=== PATIENT | female | born 1950 | race Hispanic/Latino ===

== ENCOUNTER 2017-10-30 09:23 | Inpatient (IN) | payer MEDICARE ==
--- NOTE | 2017-10-30 10:11 | ED PDOC ---
Arrival/HPI - General Chief Complaint: Trauma Time Seen by Provider: 10/30/17 09:47 Historian: Patient - History of Present Illness Narrative History of Present Illness (Text): 10/30/17 10:05 67 y/o female, pmh including htn/hyperlipidemia, psychiatric history including mild anxiety, sulfa allergy, FS108, GCS 15, alert and oriented to person and time but not to place, biba s[place], limited HPI can be obtained as the patient doesn't remember what happen. Pt. stated that she only recall that she was [place] the cruise [place] this [place] with her boyfriend (not at the bedside or in the ER), woke up at 7am and doesn't remember what happened afterward. As per EMS, pt. fall about 8 steps this morning with head injury which she found to be appear to be "altered" during the transport to the ER. Pt. has no urinary or bowel incontinence or retention , no tremors or seizure like activity. Pt. is in the ER only alert to her name/ date of and today's date but not sure where she is at and how she got here. Pt.'s only medical and psychological complaints are "I have a headache and I want to see my boyfriend." Pt. has no homicidal or suicidal ideation, no auditory or visual hallucination, no abdominal or pelvic pain, no back or rib pain, no hematuria, no dizziness, no change in vision, no palpitation, no rash, no numbness or tingling, no slurred speech. 10/30/17 11:20 Additional HPI obtained from the boyfriend shaylee, just arrived at the ER. Pt. possibly tripped over the carpted floor, tripped over 3 steps, twisted the body 3 steps and hit the head on the last 2-3 steps, found to be confused after the fall. Past Medical History - Provider Review Nursing Documentation Reviewed: Yes - Infectious Disease Hx of Infectious Diseases: None - Reproductive Menopause: Yes - Cardiac Hx Hypertension: Yes - Pulmonary Hx Respiratory Disorders: No - Genitourinary/Gynecological Other/Comment: breast ca - Psychiatric Hx Psychophysiologic Disorder: No Hx Substance Use: No - Anesthesia Hx Anesthesia: Yes Hx Anesthesia Reactions: No Family/Social History - Physician Review Nursing Documentation Reviewed: Yes Family/Social History: Unknown Family HX Smoking Status: Unknown If Ever Smoked Hx Alcohol Use: Yes Frequency of alcohol use: Socially Hx Substance Use: No Allergies/Home Meds Allergies/Adverse Reactions: Allergies Sulfa (Sulfonamide Antibiotics) Allergy (Verified 10/30/17 09:43) RASH Home Medications: Home Meds Medication Instructions Recorded Confirmed Lisinopril [Zestril] 40 mg PO DAILY 10/30/17 10/30/17 Metoprolol Tartrate [Lopressor] 50 mg PO BID 10/30/17 10/30/17 Rosuvastatin Calcium [Crestor] 10 mg PO DAILY 10/30/17 10/30/17 busPIRone [Buspar] 5 mg PO DAILY 10/30/17 10/30/17 Review of Systems - Review of Systems Constitutional: absent: Fatigue, Fevers Eyes: absent: Vision Changes ENT: absent: Hearing Changes, Rhinorrhea Respiratory: absent: SOB, Cough Cardiovascular: Other (syncope?). absent: Chest Pain, Palpitations Gastrointestinal: absent: Abdominal Pain, Nausea Musculoskeletal: absent: Arthralgias, Back Pain, Neck Pain, Myalgias Skin: absent: Rash, Pruritis Neurological: Headache. absent: Dizziness, Focal Weakness, Gait Changes, Speech Changes, Facial Droop, Disequilibrium, Seizure Psychiatric: absent: Anxiety, Depression, Suicidal Ideation Physical Exam Vital Signs Reviewed: Yes Vital Signs Temp Pulse Resp BP Pulse Ox 10/30/17 13:10 86 41 H 10/30/17 13:05 84 20 10/30/17 11:53 82 18 173/94 H 97 10/30/17 10:24 186/97 H 10/30/17 09:45 97.9 F 83 16 173/122 H 97 Temperature: Afebrile Blood Pressure: Hypertensive Pulse: Regular Respiratory Rate: Normal Appearance: Positive for: Well-Appearing, Non-Toxic, Comfortable Pain Distress: Mild Mental Status: Positive for: Confused Finger Stick Blood Glucose: 108 - Systems Exam Head: Present: Atraumatic, Normocephalic, Other (no facial tenderness or swelling). No: Tenderness, Contusion, Swelling, Ecchymosis, Abrasion, Laceration Pupils: Present: PERRL Extroacular Muscles: Present: EOMI Conjunctiva: Present: Normal Ears: Present: NORMAL TM, Normal Canal Mouth: Present: Moist Mucous Membranes Pharnyx: No: ERYTHEMA, EXUDATE, TONSILS ENLARGED Nose (External): Present: Atraumatic. No: Abrasion, Contusion, Laceration Nose (Internal): Present: Normal Inspection, No Active Bleeding. No: Rhinorrhea , Septal Hematoma, Epistaxis Neck: Present: Normal Range of Motion, Trachea Midline. No: Meningeal Signs, MIDLINE TENDERNESS, Paraspinal Tenderness, Lymphadenopathy Respiratory/Chest: Present: Clear to Auscultation, Good Air Exchange. No: Respiratory Distress, Accessory Muscle Use, Wheezes, Decreased Breath Sounds, Rales, Retracting, Rhonchi, Tachypneic Cardiovascular: Present: Regular Rate and Rhythm, Normal S1, S2. No: Murmurs Abdomen: No: Tenderness, Distention, Peritoneal Signs, Rebound, Guarding Rectal: Present: Other (Pt. declined) Back: Present: Normal Inspection. No: CVA Tenderness, Midline Tenderness, Paraspinal Tenderness, Pain with Leg Raise, Decubitus Ulcer Upper Extremity: Present: Normal Inspection, Normal ROM, NORMAL PULSES, Neurovascularly Intact, Capillary Refill < 2s. No: Cyanosis, Edema, Tenderness , Swelling, Deformity Lower Extremity: Present: Normal Inspection, NORMAL PULSES, Normal ROM, Neurovascularly Intact, Capillary Refill < 2 s. No: Edema, Tenderness, Swelling , Deformity Neurological: Present: GCS=15, CN II-XII Intact, Speech Normal, Motor Func Grossly Intact, Gait Normal, Other (Normal finger to nose test, normal heel to reynolds test, no drift, walking with normal gait and posture, full sensation intact to sharp and dull, no focal neurological deficits, GCS 15, NIHSS is 0) Skin: Present: Warm, Dry, Normal Color. 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 Santos -Observe and reassess 10/30/17 10:56 -NIHSS is 0 -EKG: NSR @ 81 BPM, no ST elevation or depression, no T wave inversion, no pervious ekg available for comparison -Chest ray no active disease -Hip/pelvis xray no fracture or dislocation -CT head Small amount of posttraumatic subarachnoid hemorrhage on the anterior surface of the left frontal lobe. -CT cervical No significant central canal or neural foraminal stenosis. Small central disc protrusion at C2-3. Pt. has no neck pain and no midline tenderness , no neck or upper extremity pain. -Labs show no acute findings except K+ 5.3 (kayaxylate po), Mg 1.5 (MgSu 1gm IV ordered) -BNP 707 (Fluid decreased to 50cc/hr), -Troponin is negative -UA show +UTI, IV rocephine ordered. -UDS is negative. -Alcohol level -Pt. is still neurologically intact, no focal neuroloficits, no changes compared to last examination. -Neurosurgery Dr. Ravi paged for emergent consult. Pt. will need ICU admission. -Case discussed with Dr. Santos, reviewed labs/radiology result and agreed on the plan of care 10/30/17 11:08 -Dr. Ravi call me back, discussed about the result/vital signs/physical examination, suggest to repeat CT head in 6 hours and if no change then the patient is clear from neurosurgical point of view, no other emergent intervention indicated from his point of view. -Dr. Li is traveling and not taking call -Pt. is currently aox3, I reviewed all labs/radiology result and consults recommendation with the patient and the boyfriend Shaylee (pt. agreed that he can know all her results and consult) -Paging hospitalist/ICU (incase the bleeding worsened 6 hours from now) and will need continuous serial neurological examination. Note: the fall appear to be mechanical but I can not exclude this is not cardiogenic syncope as the patient can not provide full history to me. 10/30/17 11:26 -I spoke to the ICU Dr. Zuniga, discussed about the case/radiology result/labs /neurosurgery evaluation, will come to evaluate the patient. 10/30/17 11:51 -Dr. Zuniga evaluated the patient and will take the patient to ICU for 24 hours until the repeat CT is resulted. -I spoke to the hospitalist Dr. Mike Messina, all labs/radiology/ICU Dr. Olivera /Neurosrgery Dr. Ravi discussed, agreed to admit the patient to his service which he will continue the care and repeat CT head in 6 hours from initially. -Case discussed/labs reviewed with Dr. Santos, he agreed on the treatment and admission plan. Reassessment Condition: Re-examined, Improving,but remains with symptoms - Critical Care Critical Care Minutes: 45 minutes Narrative Critical Care (Text): 10/30/17 11:55 Subarachnoid bleeding of the brain, trauma, neurosurgery consult, ICU consult, Medicine consult, neurological examination with series, cardiac monitoring. - Lab Interpretations Lab Results: 10/30/17 10:00 10/30/17 10:00 Lab Results 10/30/17 11:20: Blood Type O POSITIVE, Antibody Screen Negative, BBK History Checked No verified bt 10/30/17 10:19: Urine Color Yellow, Urine Appearance Clear, Urine pH 6.0, Ur Specific Bonner <= 1.005, Urine Protein Negative, Urine Glucose (UA) Negative, Urine Ketones Negative, Urine Blood Negative, Urine Nitrate Negative, Urine Bilirubin Negative, Urine Urobilinogen 0.2, Ur Leukocyte Esterase Trace H, Urine RBC 0 - 2, Urine WBC 5 - 10, Ur Epithelial Cells 3 - 4, Urine Bacteria Few 10/30/17 10:19: Urine Opiates Screen Negative, Urine Methadone Screen Negative, Ur Barbiturates Screen Negative, Ur Phencyclidine Scrn Negative, Ur Amphetamines Screen Negative, U Benzodiazepines Scrn Negative, U Oth Cocaine Metabols Negative, U Cannabinoids Screen Negative 10/30/17 10:00: WBC 9.7, RBC 4.83, Hgb 14.4, Hct 42.4, MCV 87.8, MCH 29.8, MCHC 34.0, RDW 13.5, Plt Count 246, MPV 11.1 H, Gran % 75.1 H, Lymph % (Auto) 18.6 L , [place] % (Auto) 5.5, Eos % (Auto) 0.6 L, Baso % (Auto) 0.2, Gran # 7.27 H, Lymph # (Auto) 1.8, [place] # (Auto) 0.5, Eos # (Auto) 0.1, Baso # (Auto) 0.02 10/30/17 10:00: Sodium 149 H, Potassium 5.3 H, Chloride 110 H, Carbon Dioxide 29 , Anion Gap 16, BUN 21, Creatinine 0.8, Est GFR ( Amer) > 60, Est GFR ( Non-Af Amer) > 60, Random Glucose 121 H, Calcium 9.8, Magnesium 1.5 L, Total Bilirubin 1.0, AST 33, ALT 39, Alkaline Phosphatase 94, Lactate Dehydrogenase 590, Total Creatine Kinase 108, Troponin I < 0.01, NT-Pro-B Natriuret Pep 707 H , Total Protein 7.3, Albumin 4.3, Globulin 3.0, Albumin/Globulin Ratio 1.4 10/30/17 09:39: POC Glucose (mg/dL) 108 I have reviewed the lab results: Yes - RAD Interpretation Radiology Orders: 10/30/17 10:01 CERVICAL SPINE W/O CONTRAST [CT] Stat HEAD W/O CONTRAST [CT] Stat 10/30/17 10:02 Hip Bilateral [HIP MIN 5V W/ PELVIS HARSHAD] [RAD] Stat 10/30/17 10:03 CHEST PORTABLE [RAD] Stat -Chest ray LUNGS: No active pulmonary disease. PLEURA: No significant pleural effusion identified, no pneumothorax apparent. CARDIOVASCULAR: Normal. OSSEOUS STRUCTURES: No significant abnormalities. VISUALIZED UPPER ABDOMEN: Normal. OTHER FINDINGS: None. IMPRESSION: No active disease. -Hip/pelvis xray HISTORY: trauma? COMPARISON: None. FINDINGS: BONES: Pelvis: Unremarkable. Right hip:Unremarkable. Left hip:Unremarkable. JOINTS: Right hip: Unremarkable. Left hip: Unremarkable. Sacroiliac Joints: Unremarkable. Pubic symphysis: Unremarkable. SOFT TISSUES: Normal. OTHER FINDINGS: None. IMPRESSION: Unremarkable radiographs of the hips and pelvis. -CT head HEMORRHAGE: There is a small amount of subarachnoid blood on the surface of the anterior left frontal lobe. The finding is seen on images 34-40 of series 4. I discussed the findings with the physician's mortgage loan assistant Abril at 10:45 a.m. BRAIN: No mass effect or edema. No atrophy or chronic microvascular ischemic changes. VENTRICLES: Unremarkable. No hydrocephalus. CALVARIUM: Unremarkable. PARANASAL SINUSES: Unremarkable as visualized. No significant inflammatory changes. MASTOID AIR CELLS: Unremarkable as visualized. No inflammatory changes. OTHER FINDINGS: None. IMPRESSION: Small amount of posttraumatic subarachnoid hemorrhage on the anterior surface of the left frontal lobe. -CT cervical HISTORY: head injury, altered? COMPARISON: None available. TECHNIQUE: Axial computed tomography images were obtained of the cervical spine without the use of intravenous contrast. Coronal and sagittal reformatted images were created and reviewed. Radiation dose: Total exam DLP = 635 mGy-cm. This CT exam was performed using one or more of the following dose reduction techniques: Automated exposure control, adjustment of the mA and/or kV according to patient size, and/or use of iterative reconstruction technique. FINDINGS: VERTEBRAE: No fracture. Normal alignment. No destructive bony lesion. DISCS/SPINAL CANAL/NEURAL FORAMINA: No significant central canal or neural foraminal stenosis. Small central disc protrusion at C2-3 PARASPINAL SOFT TISSUES: Unremarkable. OTHER FINDINGS: None. IMPRESSION: No acute findings Barrel Filler: Radiologist - EKG Interpretation EKG Interpretation (Text): 10/30/17 10:18 -EKG: NSR @ 81 BPM, no ST elevation or depression, no T wave inversion, no pervious ekg available for comparison Interpreted by ED Physician: Yes Type: 12 lead EKG Comparison: No previous EKG avail. - Medication Orders Current Medication Orders: Acetaminophen (Tylenol 325mg Tab) 650 mg PO Q6H PRN PRN Reason: Pain, Mild (1-3) Sodium Chloride (Sodium Chloride 0.9%) 1,000 mls @ 50 mls/hr IV .Q20H AMAN Last Admin: 10/30/17 11:27 Dose: 50 mls/hr eMAR Start Stop Document 10/30/17 11:27 GMD (Rec: 10/30/17 11:27 GMD [id number]) Intravenous Solution Start Date 10/30/17 Start Time 11:27 Ceftriaxone Sodium (Rocephin 1 Gram Ivpb) 1 gm in 100 mls @ 100 mls/hr IVPB DAILY AMAN PRN Reason: Protocol Labetalol HCl (Trandate) 5 mg IV Q4H PRN PRN Reason: Systolic Blood Pressure Metoclopramide HCl (Reglan) 10 mg IVP Q6H PRN PRN Reason: Nausea/Vomiting Last Admin: 10/30/17 17:44 Dose: 10 mg IVP Administration Document 10/30/17 17:44 KA (Rec: 10/30/17 17:[email or web address] Charges for Administration # of IVP Administrations 1 Morphine Sulfate (Morphine) 2 mg IVP Q4H PRN PRN Reason: Pain, moderate (4-7) Last Admin: 10/30/17 14:48 Dose: 2 mg [facility] Pain Assessment Document 10/30/17 14:48 KA (Rec: 10/30/17 14:[email or web address] Pain Reassessment Is this a pain reassessment? No Sleep Is patient sleeping during reassessment? No Presence of Pain Presence of Pain Yes Pain Scale Used Pain Scale Used Numeric Location Left, Right or Bilateral Bilateral Pain Location Body Jig Maker Description Description Constant Intensity of Pain at present 6 Pain Behavior Moaning Alleviating Factors/Management Medication Techniques Alleviating Factors Medication IVP Administration Document 10/30/17 14:48 KA (Rec: 10/30/17 14:[email or web address] Charges for Administration # of IVP Administrations 1 Re-Assess: LEA Pain Assessment Document 10/30/17 15:48 KAC (Rec: 10/30/17 16:25 [id number]) Pain Reassessment Is this a pain reassessment? Yes Sleep Is patient sleeping during reassessment? No Presence of Pain Presence of Pain Yes Pain Scale Used Pain Scale Used Numeric Location Left, Right or Bilateral Bilateral Pain Location Body Jig Maker Description Description Intermittent Intensity of Pain at present 3 Ondansetron HCl (Zofran Inj) 4 mg IVP Q6H PRN PRN Reason: Nausea/Vomiting Last Admin: 10/30/17 16:11 Dose: 4 mg IVP Administration Document 10/30/17 16:11 [facility] (Rec: 10/30/17 16:11 [id number]) Charges for Administration # of IVP Administrations 1 Pantoprazole Sodium (Protonix Inj) 40 mg IVP DAILY AMAN Discontinued Medications Sodium Chloride (Sodium Chloride 0.9%) 1,000 mls @ 100 mls/hr IV .Q10H AMAN Last Admin: 10/30/17 10:09 Dose: 100 mls/hr eMAR Start Stop Document 10/30/17 10:09 GMD (Rec: 10/30/17 10:09 GMD [id number]) Intravenous Solution Start Date 10/30/17 Start Time 10:09 Magnesium Sulfate/Dextrose (Magnesium Sulfate 1 Gm/100 Ml D5w) 1 gm in 100 mls @ 100 mls/hr IVPB ONCE ONE Stop: 10/30/17 11:50 Last Admin: 10/30/17 11:58 Dose: 100 mls/hr eMAR Start Stop Document 10/30/17 11:58 GMD (Rec: 10/30/17 11:58 GMD [id number]) Intravenous Solution Start Date 10/30/17 Start Time 11:58 End Date 10/30/17 End time 12:58 Total Infusion Time 60 Ceftriaxone Sodium (Rocephin 1 Gram Ivpb) 1 gm in 100 mls @ 200 mls/hr IVPB STAT STA PRN Reason: Protocol Stop: 10/30/17 11:21 Last Admin: 10/30/17 11:27 Dose: 200 mls/hr eMAR Start Stop Document 10/30/17 11:27 GMD (Rec: 10/30/17 11:27 GMD [id number]) Intravenous Solution Start Date 10/30/17 Start Time 11:27 End Date 10/30/17 End time 11:57 Total Infusion Time 30 Morphine Sulfate (Morphine) 4 mg IVP STAT STA Stop: 10/30/17 11:09 Last Admin: 10/30/17 11:50 Dose: 4 mg MAR Pain Assessment Document 10/30/17 11:50 GMD (Rec: 10/30/17 11:51 GMD [id number]) Pain Reassessment Is this a pain reassessment? No Presence of Pain Presence of Pain Yes Location Pain Location Body Jig Maker Description Description Constant Intensity of Pain at present 6 IVP Administration Document 10/30/17 11:50 GMD (Rec: 10/30/17 11:51 GMD [id number]) Charges for Administration # of IVP Administrations 1 Sodium Polystyrene Sulfonate (Kayexalate Susp) 30 gm MN STAT STA Stop: 10/30/17 11:04 Last Admin: 10/30/17 11:58 Dose: 30 gm - PA / RN CAMP / Resident Statement MD/DO has reviewed & agrees with the documentation as recorded. Disposition/Present on Arrival - Present on Arrival Any Indicators Present on Arrival: No History of DVT/PE: No History of Uncontrolled Diabetes: No Urinary Catheter: No History of Decub. Ulcer: No History Surgical Site Infection Following: None - Disposition Have Diagnosis and Disposition been Completed?: Yes Diagnosis: UTI (urinary tract infection), Hypomagnesemia, Elevated brain natriuretic peptide (BNP) level, Hyperkalemia, Subarachnoid hemorrhage, Fall Disposition: HOSPITALIZED Disposition Time: 10:55 Patient Plan: Admission, ICU Patient Problems: Current Active Problems Problem Status Onset UTI (urinary tract infection) Acute Hypomagnesemia Acute Elevated brain natriuretic peptide (BNP) level Acute Hyperkalemia Acute Subarachnoid hemorrhage Acute Fall Acute Condition: STABLE
[2017-10-30] MEDS ORDERED: Sodium Chloride 0.9% 1,000 ML IV SCH (10:15)
[2017-10-30 10:19] LABS: BASO # 0.02 K/mm3 (0.0-2.0); BASO % 0.2 % (0.0-3.0); EOS # 0.1 (0.0-0.7); EOS % 0.6 % (1.5-5.0); GRAN # 7.27 (1.4-6.5); GRAN % 75.1 % (50.0-68.0); HEMOGLOBIN 14.4 g/dL (12.0-16.0); LYMPH # 1.8 (1.2-3.4); LYMPH % 18.6 % (22.0-35.0); MEAN CELL VOLUME 87.8 fl (80.0-105.0); MEAN CORPUSCULAR HEMOGLOBIN 29.8 pg (25.0-35.0); MEAN PLATELET VOLUME 11.1 fl (7.0-11.0); MONO # 0.5 (0.1-0.6); MONO % 5.5 % (1.0-6.0); RBC 4.83 10^6/uL (3.5-6.1); RED CELL DISTRIBUTION WIDTH 13.5 % (11.5-14.5); WHITE BLOOD COUNT 9.7 10^3/ul (4.5-11.0)
[2017-10-30 10:23] LABS: URINE BILIRUBIN NEGATIVE (NEGATIVE); URINE BLOOD NEGATIVE (NEGATIVE); URINE GLUCOSE (UA) NEGATIVE (NEGATIVE); URINE LEUKOCYTE ESTERASE TRACE Leu/uL (NEGATIVE); URINE PROTEIN NEGATIVE mg/dL (<30 mg/dL); URINE UROBILINOGEN 0.2 E.U./dL (<1 E.U./dL)
[2017-10-30 10:23] LABS: ALB/GLOB RATIO 1.4 (1.1-1.8); ALBUMIN 4.3 g/dL (3.0-4.8); ALT/SGPT 39 U/L (7-56); AST/SGOT 33 U/L (14-36); BLOOD UREA NITROGEN 21 mg/dL (7-21); CALCIUM 9.8 mg/dL (8.4-10.5); GFR AFRICAN-AMERICAN > 60; GFR NON-AFRICAN AMERICAN > 60
[2017-10-30 10:35] LABS: B-TYPE NATRIURETIC PEPTIDE 707 pg/mL (0-450); TROPONIN I < 0.01 ng/mL
[2017-10-30 10:45] LABS: URINE APPEARANCE CLEAR (CLEAR); URINE COLOR YELLOW (YELLOW)
[2017-10-30 10:46] LABS: URINE BACTERIA FEW (NEG); URINE RBC 0 - 2 /hpf (0-2)
[2017-10-30 10:51] LABS: BARBITURATES, UR NEGATIVE (NEGATIVE); BENZODIAZEPINES, UR NEGATIVE (NEGATIVE); OPIATES, UR NEGATIVE (NEGATIVE); PHENCYCLIDINE, UR NEGATIVE (NEGATIVE)
[2017-10-30] MEDS ORDERED: Sod Polystyrene Sulf 15 gm/60 ml Susp PO STA (10:51)
[2017-10-30] MEDS ORDERED: Magnesium Sulfate 1 gm in D5W 1 GM/100 ML BAG IVPB ONE (10:51)
--- NOTE | 2017-10-30 10:51 | CT ---
PROCEDURE: CT HEAD WITHOUT CONTRAST. HISTORY: head injury, possible LOC, bleed? COMPARISON: None available. TECHNIQUE: Axial computed tomography images were obtained through the head/brain without intravenous contrast. Radiation dose: Total exam DLP = 910 mGy-cm. This CT exam was performed using one or more of the following dose reduction techniques: Automated exposure control, adjustment of the mA and/or kV according to patient size, and/or use of iterative reconstruction technique. FINDINGS: HEMORRHAGE: There is a small amount of subarachnoid blood on the surface of the anterior left frontal lobe. The finding is seen on images 34-40 of series 4. I discussed the findings with the physician's distribution center assistant Abril at 10:45 a.m. BRAIN: No mass effect or edema. No atrophy or chronic microvascular ischemic changes. VENTRICLES: Unremarkable. No hydrocephalus. CALVARIUM: Unremarkable. PARANASAL SINUSES: Unremarkable as visualized. No significant inflammatory changes. MASTOID AIR CELLS: Unremarkable as visualized. No inflammatory changes. OTHER FINDINGS: None. IMPRESSION: Small amount of posttraumatic subarachnoid hemorrhage on the anterior surface of the left frontal lobe.
[2017-10-30] MEDS ORDERED: cefTRIAXone 1 gm 1 GM/100 ML BAG IVPB STA (10:52)
--- NOTE | 2017-10-30 10:59 | CT ---
PROCEDURE: CT Cervical Spine without contrast HISTORY: head injury, altered? COMPARISON: None available. TECHNIQUE: Axial computed tomography images were obtained of the cervical spine without the use of intravenous contrast. Coronal and sagittal reformatted images were created and reviewed. Radiation dose: Total exam DLP = 635 mGy-cm. This CT exam was performed using one or more of the following dose reduction techniques: Automated exposure control, adjustment of the mA and/or kV according to patient size, and/or use of iterative reconstruction technique. FINDINGS: VERTEBRAE: No fracture. Normal alignment. No destructive bony lesion. DISCS/SPINAL CANAL/NEURAL FORAMINA: No significant central canal or neural foraminal stenosis. Small central disc protrusion at C2-3 PARASPINAL SOFT TISSUES: Unremarkable. OTHER FINDINGS: None. IMPRESSION: No acute findings
[2017-10-30] MEDS ORDERED: Sod Polystyrene Sulf 15 gm/60 ml Susp PR STA (11:03)
[2017-10-30] MEDS ORDERED: Morphine 4 mg/ml ISec IVP STA (11:08)
--- NOTE | 2017-10-30 11:09 | RAD ---
HISTORY: medical clearance COMPARISON: No prior. FINDINGS: LUNGS: No active pulmonary disease. PLEURA: No significant pleural effusion identified, no pneumothorax apparent. CARDIOVASCULAR: Normal. OSSEOUS STRUCTURES: No significant abnormalities. VISUALIZED UPPER ABDOMEN: Normal. OTHER FINDINGS: None. IMPRESSION: No active disease.
--- NOTE | 2017-10-30 11:11 | RAD ---
PROCEDURE: Radiographs of the pelvis and bilateral hips HISTORY: trauma? COMPARISON: None. FINDINGS: BONES: Pelvis: Unremarkable. Right hip:Unremarkable. Left hip:Unremarkable. JOINTS: Right hip: Unremarkable. Left hip: Unremarkable. Sacroiliac Joints: Unremarkable. Pubic symphysis: Unremarkable. SOFT TISSUES: Normal. OTHER FINDINGS: None. IMPRESSION: Unremarkable radiographs of the hips and pelvis.
[2017-10-30] MEDS: Sodium Chloride 0.9% 1,000 ML IV SCH (11:27)
--- NOTE | 2017-10-30 12:11 | CP.PCM.CON ---
History of Present Illness - History of Present Illness History of Present Illness: MICU Consult Note HPI Patient is 67yo female with PMhx of HTN, HLD, anxiety disorder, [place]. As per the boyfriend who provided most of history, patient was going down the stairs when she tripped and fell several steps hitting back of her head. Pt cannot recall the incident. Pt reports she has frontal/occipital headache, without fever, chills, blurry vision, n/v, abd pain. No other constitutional symptoms. CTH done in the ER with small frontal SAH. NSG consulted, no intervention at this time. PMHx: htn/hyperlipidemia, anxiety PSHx: As above Meds as per EMR FHx NC ROS as above Social occasional etoh, denies drug use, smoking Review of Systems - Review of Systems Review of Systems: as per HPI Past Patient History - Infectious Disease Hx of Infectious Diseases: None - Past Social History Smoking Status: Unknown If Ever Smoked - CARDIAC Hx Hypertension: Yes - PULMONARY Hx Respiratory Disorders: No - GENITOURINARY/GYNECOLOGICAL Other/Comment: breast ca - PSYCHIATRIC Hx Psychophysiologic Disorder: No Hx Substance Use: No - ANESTHESIA Hx Anesthesia: Yes Hx Anesthesia Reactions: No Meds Allergies/Adverse Reactions: Allergies Allergy/AdvReac Type Severity Reaction Status Date / Time Sulfa (Sulfonamide Allergy RASH Verified 10/30/17 09:43 Antibiotics) - Medications Medications: Current Medications Sodium Chloride (Sodium Chloride 0.9%) 1,000 mls @ 50 mls/hr IV .Q20H AMAN Last Admin: 10/30/17 11:27 Dose: 50 mls/hr Physical Exam - Constitutional Appears: Non-toxic, No Acute Distress - Head Exam Head Exam: NORMAL INSPECTION - Eye Exam Eye Exam: EOMI, Normal appearance - ENT Exam ENT Exam: Mucous Membranes Moist - Neck Exam Neck exam: Positive for: Full Rom - Respiratory Exam Respiratory Exam: Clear to Auscultation Bilateral, NORMAL BREATHING PATTERN - Cardiovascular Exam Cardiovascular Exam: REGULAR RHYTHM, +S1, +S2 - GI/Abdominal Exam GI & Abdominal Exam: Normal Bowel Sounds, Soft - Extremities Exam Extremities exam: Positive for: normal inspection - Neurological Exam Neurological exam: Alert, CN II-XII Intact, Oriented x3 - Psychiatric Exam Psychiatric exam: Normal Affect - Skin Skin Exam: Normal Color, Warm Results - Vital Signs Recent Vital Signs: Last Vital Signs Temp 97.9 F 10/30/17 09:45 Pulse 82 10/30/17 11:53 Resp 18 10/30/17 11:53 BP 173/94 H 10/30/17 11:53 Pulse Ox 97 10/30/17 11:53 - Labs Result Diagrams: 10/30/17 10:00 10/30/17 10:00 Labs: Laboratory Results - last 24 hr 10/30/17 10/30/17 10/30/17 09:39 10:00 10:00 WBC 9.7 RBC 4.83 Hgb 14.4 Hct 42.4 MCV 87.8 MCH 29.8 MCHC 34.0 RDW 13.5 Plt Count 246 MPV 11.1 H Gran % 75.1 H Lymph % (Auto) 18.6 L Weber % (Auto) 5.5 Eos % (Auto) 0.6 L Baso % (Auto) 0.2 Gran # 7.27 H Lymph # (Auto) 1.8 Weber # (Auto) 0.5 Eos # (Auto) 0.1 Baso # (Auto) 0.02 Sodium 149 H Potassium 5.3 H Chloride 110 H Carbon Dioxide 29 Anion Gap 16 BUN 21 Creatinine 0.8 Est GFR ( Amer) > 60 Est GFR (Non-Af Amer) > 60 POC Glucose (mg/dL) 108 Random Glucose 121 H Calcium 9.8 Magnesium 1.5 L Total Bilirubin 1.0 AST 33 ALT 39 Alkaline Phosphatase 94 Lactate Dehydrogenase 590 Total Creatine Kinase 108 Troponin I < 0.01 NT-Pro-B Natriuret Pep 707 H Total Protein 7.3 Albumin 4.3 Globulin 3.0 Albumin/Globulin Ratio 1.4 Urine Color Urine Appearance Urine pH Ur Specific [place] Urine Protein Urine Glucose (UA) Urine Ketones Urine Blood Urine Nitrate Urine Bilirubin Urine Urobilinogen Ur Leukocyte Esterase Urine RBC Urine WBC Ur Epithelial Cells Urine Bacteria Urine Opiates Screen Urine Methadone Screen Ur Barbiturates Screen Ur Phencyclidine Scrn Ur Amphetamines Screen U Benzodiazepines Scrn U Oth Cocaine Metabols U Cannabinoids Screen BBK History Checked 10/30/17 10/30/17 10/30/17 10:19 10:19 11:20 WBC RBC Hgb Hct MCV MCH MCHC RDW Plt Count MPV Gran % Lymph % (Auto) Weber % (Auto) Eos % (Auto) Baso % (Auto) Gran # Lymph # (Auto) Weber # (Auto) Eos # (Auto) Baso # (Auto) Sodium Potassium Chloride Carbon Dioxide Anion Gap BUN Creatinine Est GFR ( Amer) Est GFR (Non-Af Amer) POC Glucose (mg/dL) Random Glucose Calcium Magnesium Total Bilirubin AST ALT Alkaline Phosphatase Lactate Dehydrogenase Total Creatine Kinase Troponin I NT-Pro-B Natriuret Pep Total Protein Albumin Globulin Albumin/Globulin Ratio Urine Color Yellow Urine Appearance Clear Urine pH 6.0 Ur Specific [place] <= 1.005 Urine Protein Negative Urine Glucose (UA) Negative Urine Ketones Negative Urine Blood Negative Urine Nitrate Negative Urine Bilirubin Negative Urine Urobilinogen 0.2 Ur Leukocyte Esterase Trace H Urine RBC 0 - 2 Urine WBC 5 - 10 Ur Epithelial Cells 3 - 4 Urine Bacteria Few Urine Opiates Screen Negative Urine Methadone Screen Negative Ur Barbiturates Screen Negative Ur Phencyclidine Scrn Negative Ur Amphetamines Screen Negative U Benzodiazepines Scrn Negative U Oth Cocaine Metabols Negative U Cannabinoids Screen Negative BBK History Checked No verified bt - Imaging and Cardiology Chest x-ray Status: Image reviewed by me, Report reviewed by me CT scan - head Status: Image reviewed by me, Report reviewed by me Assessment & Plan - Assessment and Plan (Free Text) Assessment: 67yo female a/w small SAH SAH Syncope/Concussion HTN Hyperkalemia Hypernatremia - currently afebrile, HD stable, comfortable in NAD, non focal neurological exam - NSG consulted - neurology consult pending Recommend: - supp o2 as needed - BP control, would avoid ZOEY-I/ARB - IVF 1/2NS - Kayex 30g PO x 1 - repeat BMP - ECHO - Carotid duplex - MRI brain - repeat CTH in 6 hours as per neurosurgery - GI ppx - DVT ppx, SCDs - Monitor in MICU
--- NOTE | 2017-10-30 13:18 | CP.PCM.HP ---
<Fariba Oleary - Last Filed: 10/30/17 15:42> History of Present Illness - History of Present Illness History of Present Illness: CC: post fall in cruise ship. Patient is 67 yo female with PMHx of HTN, HLD, SVT, breast cancer x2 ( s/p surgery, chemo and radiation), anxiety disorder, h/o TIAs brought in post fall in cruise ship. Patient states she doesn't remember the event, only remember being in the hospital. As per patient's , patient was walking down the stairs when her shoe got caught between some objects causing her to trip and fall, hitting the back of her head. As per patient's patient was verbal post event while in the cruise ship. denies noting any seizure like activity. Denies bowel or bladder incontinent. Patient currently states the headache has resolved. Denies cp, sob, no nausea, vomiting or diarrhea. Was in her normal state of health prior to the event. Was in the cruise ship for 5 days. admits patient had couple of drinks the night before. Denies illicit drug use. Patient had CT head in the er, revealing small frontal SAH. PMHx: htn, hyperlipidemia, anxiety, SVT, breast cancer x2, h/o TIAs PSHx: marlen mastectomy, knee surgery, rotator cuff repair, loop recorder in the past ( removed). FMHx: Alzheimer Social: former tobacco , quit 30 years, social alcohol, denies illicit drug use. Home meds: as per chart. Present on Admission - Present on Admission Any Indicators Present on Admission: No History of DVT/PE: No History of Uncontrolled Diabetes: No Urinary Catheter: No Decubitus Ulcer Present: No Review of Systems - EENT Eyes: absent: Blurred Vision, Change in Vision, Diplopia, Itchy Eyes, Sees Flashes Ears: absent: Decreased Hearing, Disequilibrium, Dizziness Nose/Mouth/Throat: absent: As Per HPI, Epistaxis, Nasal Congestion, Nasal Discharge, Nasal Obstruction, Nasal Trauma, Nose Pain, Post Nasal Drip, Sinus Pain, Sinus Pressure, Bleeding Gums, Change in Voice, Dental Pain, Dry Mouth, Dysphagia, Halitosis, Hoarsness, Lip Swelling, Mouth Lesions, Mouth Pain, Odynophagia, Sore Throat, Throat Swelling, Tongue Swelling, Facial Pain, Neck Pain, Neck Mass, Other - Cardiovascular Cardiovascular: absent: As Per HPI, Acrocyanosis, Chest Pain, Chest Pain at Rest , Chest Pain with Activity, Claudication, Diaphoresis, Dyspnea, Dyspnea on Exertion, Edema, Irregular Heart Rhythm, Pain Radiating to Arm/Neck/Jaw, Leg Edema, Leg Ulcers, Lightheadedness, Orthopnea, Palpitations, Paroxysmal Nocturnal Dyspnea, Pedal Edema, Radiating Pain, Rapid Heart Rate, Slow Heart Rate, Syncope, Other - Respiratory Respiratory: absent: As Per HPI, Cough, Dyspnea, Hemoptysis, Dyspnea on Exertion , Wheezing, Snoring, Stridor, Pain on Inspiration, Chest Congestion, Excessive Mucous Production, Change in Mucous Color, Pain with Coughing, Other - Gastrointestinal Gastrointestinal: absent: As Per HPI, Abdominal Pain, Belching, Bloating, Change in Bowel Habits, Change in Stool Character, Coffee Ground Emesis, Constipation, Cramping, Diarrhea, Dyspepsia, Dysphagia, Early Satiety, Excessive Flatus, Fecal Incontinence, Heartburn, Hematemesis, Hematochezia, Loose Stools, Melena, Nausea, Odynophagia, Temesmus, Vomiting, Other - Genitourinary Genitourinary: absent: Dysuria, Hematuria, Nocturia, Urinary Frequency, Freq UTI - Musculoskeletal Musculoskeletal: absent: As Per HPI, Abnormal Gait, Arthralgias, Atrophy, Back Pain, Deformity, Joint Swelling, Limited Range of Motion, Loss of Height, Muscle Cramps, Muscle Weakness, Myalgias, Neck Pain, Numbness, Radiating Pain into Limb, Stiffness, Tingling, Other - Integumentary Integumentary: absent: Dry Skin, Swelling - Neurological Neurological: Syncope. absent: Abnormal Hearing, Abnormal Speech, Burning Sensations, Disequilibrium, Dizziness, Numbness, Frequent Falls, Headaches, Loss of Vision, Paresthesias, Restless Legs, Tingling, Tremor, Vertigo, Weakness - Psychiatric Psychiatric: absent: Confusion, Depression - Endocrine Endocrine: absent: Flushing, Polydipsia, Polyphagia, Polyuria - Hematologic/Lymphatic Hematologic: absent: Easy Bleeding Past Patient History - Infectious Disease Hx of Infectious Diseases: None - Tetanus Immunizations Tetanus Immunization: Unknown - Past Medical History & Family History Past Medical History?: Yes - Past Social History Smoking Status: Former Smoker Alcohol: Occasional Drugs: Denies Home Situation {Lives}: With Family - CARDIAC Hx Hypertension: Yes - PULMONARY Hx Respiratory Disorders: No - GENITOURINARY/GYNECOLOGICAL Other/Comment: breast ca - PSYCHIATRIC Hx Psychophysiologic Disorder: No Hx Substance Use: No - ANESTHESIA Hx Anesthesia: Yes Hx Anesthesia Reactions: No Meds Allergies/Adverse Reactions: Allergies Allergy/AdvReac Type Severity Reaction Status Date / Time Sulfa (Sulfonamide Allergy RASH Verified 10/30/17 09:43 Antibiotics) Physical Exam - Constitutional Appears: No Acute Distress, Older Than Stated Age - Head Exam Head Exam: ATRAUMATIC, NORMAL INSPECTION, NORMOCEPHALIC - Eye Exam Eye Exam: EOMI, Normal appearance, PERRL. absent: Scleral icterus Pupil Exam: NORMAL ACCOMODATION - ENT Exam ENT Exam: Mucous Membranes Moist - Neck Exam Neck exam: Positive for: Normal Inspection - Respiratory Exam Respiratory Exam: Clear to Auscultation Bilateral, NORMAL BREATHING PATTERN. absent: Rales, Rhonchi, Wheezes, Respiratory Distress, Stridor - Cardiovascular Exam Cardiovascular Exam: REGULAR RHYTHM, RRR, +S1, +S2. absent: Bradycardia, Tachycardia, Diastolic murmur, Gallop, Systolic Murmur - GI/Abdominal Exam GI & Abdominal Exam: Normal Bowel Sounds, Soft. absent: Distended, Firm, Guarding, Rebound, Rigid, Tenderness - Extremities Exam Extremities exam: Positive for: normal inspection. Negative for: pedal edema, tenderness - Back Exam Back exam: NORMAL INSPECTION. absent: vertebral tenderness - Neurological Exam Neurological exam: Alert, CN II-XII Intact, Oriented x3, Reflexes Normal - Psychiatric Exam Psychiatric exam: Anxious - Skin Skin Exam: Dry, Normal Color Results - Vital Signs Recent Vital Signs: Last Vital Signs Temp 97.9 F 10/30/17 09:45 Pulse 76 10/30/17 13:12 Resp 18 10/30/17 13:12 BP 174/101 H 10/30/17 13:12 Pulse Ox 98 10/30/17 13:12 - Labs Result Diagrams: 10/30/17 10:00 10/30/17 10:00 Labs: Laboratory Results - last 24 hr 10/30/17 12:15 Blood Type Confirm O POSITIVE - EKG Data EKG Interpreted by: Myself EKG shows normal: Sinus rhythm Rate: Normal Assessment & Plan - Assessment and Plan (Free Text) Assessment: Patient is 67 yo female with PMHx of HTN, HLD, SVT, breast cancer x2 ( s/p surgery, chemo and radiation), anxiety disorder, h/o TIAs brought in post fall in cruise ship. 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 - Neurology consulted - Will maintain BP below 170/100. - TSH ordered, - Electrolytes are being corrected - UTI is being treated - Glucose was normal on arrival - alcohol level ordered, utox normal - Neuro check q2hr - Avoid hypotensive, hypoglycemic episodes - Carotid us ordered. - Speech and swallow. - fall precaution - Avoid ASA, and anticoags. - Hpi/pelvic x-ray normal, Morphine prn for pain. 2) Uncontrolled htn - labetalol prn to maintain SBP below 170. - will hold po meds. 3) Hypernatremia- Gentle hydration 4) Hyperkalemia- likely due to acei, kayexalate ordered 5) Hypomagnesemia- being repleted. 6) UTI- - urine culture pending - afebrile, no leukocytosis - s/p Rocephin in the ED, will continue for now. 7) h/o SVT- ekg normal, will monitor tele 8) Elevated pro bnp- no signs of fluid overload, patient lying flat in bed, and able to speak in full sentences without being sob. 9) DVT/gi prophylaxis: VTE device and protonix. Patient seen, examined and case discussed with Dr Mckeon. - Date & Time Date: 10/30/17 Time: 13:35 <Mayuri Mckeon - Last Filed: 10/30/17 15:56> Results - Vital Signs Recent Vital Signs: Last Vital Signs Temp 97.9 F 10/30/17 09:45 Pulse 77 10/30/17 14:50 Resp 12 10/30/17 14:50 BP 161/85 H 10/30/17 14:00 Pulse Ox 95 10/30/17 14:40 - Labs Result Diagrams: 10/30/17 10:00 10/30/17 10:00 Labs: Laboratory Results - last 24 hr 10/30/17 10/30/17 10/30/17 12:15 13:50 13:50 Triglycerides 127 Cholesterol 174 LDL Cholesterol Direct 92 HDL Cholesterol 54 TSH 3rd Generation 1.65 Alcohol, Quantitative < 10 Blood Type Confirm O POSITIVE Attending/Attestation - Attestation I have personally seen and examined this patient.: Yes I have fully participated in the care of the patient.: Yes I have reviewed all pertinent clinical information: Yes Notes (Text): 10/30/17 15:50 67 year old female with past medical history of hypertension, dyslipidemia, SVT , anxiety, breast cancer s/p surgery, and history of TIAs who presented s/p fall with possible syncopal episode. CT head showed small amount of post- traumatic subarachnoid hemorrhage left frontal lobe. Neurosurgery was notified who recommended to repeat CT head in 6 hours. Neurology and cardiology evaluation are requested. Will obtain serial cardiac enzymes, echocardiogram, carotid dopplers. Urine drug scree and alcohol level are ordered. Will monitor in ICU. Started on antibiotics for possible UTI while awaiting Ucx. She was given kayexalate for hyperkalemia. Will monitor and hold zestril for now. Will replete and repeat magnesium. Monitor sodium for mild hypernatremia. Can start lopressor or labetalol prn for hypertension. Mayuri Mckeon MD Hospitalist.
[2017-10-30] MEDS ORDERED: Labetalol 5 mg/ml Inj 20ML IV PRN (13:44)
--- NOTE | 2017-10-30 14:07 | CARD ---
APPROVED REPORT EKG Measurement Heart [id number] <Conclusion> Normal sinus rhythm STTW changes
[2017-10-30 14:10] LABS: HDL CHOLESTEROL 54 mg/dL (29-60)
[2017-10-30 14:21] LABS: LDL CHOLESTEROL 92 mg/dL (0-129)
[2017-10-30] MEDS ORDERED: Morphine 4 mg/ml ISec IVP PRN (14:30)
--- NOTE | 2017-10-30 16:03 | CT ---
PROCEDURE: CT HEAD WITHOUT CONTRAST. HISTORY: Follow up COMPARISON: Unenhanced head CT 10/30/2017 10:34 a.m.. TECHNIQUE: Axial computed tomography images were obtained through the head/brain without intravenous contrast. Radiation dose: Total exam DLP = 810.47 mGy-cm. This CT exam was performed using one or more of the following dose reduction techniques: Automated exposure control, adjustment of the mA and/or kV according to patient size, and/or use of iterative reconstruction technique. FINDINGS: HEMORRHAGE: Trace left frontal subarachnoid hemorrhage is diminished with minimal residual noted. No new intracranial hemorrhage is appreciated otherwise. BRAIN: Otherwise, intrinsic signal remains normal in density throughout the evans and white matter structures and there is interval edema throughout the brain including the supra and infratentorial compartments. Brainstem is unremarkable. No mass-effect is identified with midline brain anatomy unremarkable once again appear VENTRICLES: Unremarkable. No hydrocephalus. CALVARIUM: Unremarkable. PARANASAL SINUSES: Unremarkable as visualized. No significant inflammatory changes. MASTOID AIR CELLS: Unremarkable as visualized. No inflammatory changes. OTHER FINDINGS: None. IMPRESSION: Diminishing trace left subarachnoid hematoma with no new interval findings throughout. The examination is otherwise unremarkable.
--- NOTE | 2017-10-30 16:27 | US ---
PROCEDURE: Bilateral carotid artery duplex ultrasound HISTORY: Carotid stenosis PHYSICIAN(S): Scott Cristina MD. TECHNIQUE: Duplex sonography and color-flow Doppler were used to evaluate the carotid bifurcations and limited segments of the vertebral arteries bilaterally. FINDINGS: There is mild smooth heterogeneous plaque noted at the carotid bifurcations bilaterally. The peak systolic velocity in the proximal right internal carotid artery is 88 cm/sec. This corresponds to a 20 to 39% proximal right ICA stenosis. Normal systolic velocities are noted in the proximal right external carotid artery. There is antegrade flow in the right vertebral artery. The peak systolic velocity in the proximal left internal carotid artery is 82 cm/sec. This corresponds to a 20 to 39% proximal left ICA stenosis. Normal systolic velocities are noted in the proximal left external carotid artery. There is antegrade flow in the left vertebral artery. IMPRESSION: 1. Bilateral 20-39% proximal ICA stenoses. 2. Antegrade flow in both vertebral arteries.
[2017-10-30] MEDS ORDERED: Dexamethasone 4 mg/1 ml IVP SCH (16:45)
--- NOTE | 2017-10-30 17:14 | CP.PCM.PN ---
Subjective - Date & Time of Evaluation Date of Evaluation: 10/30/17 Time of Evaluation: 17:13 - Subjective Subjective: Spoke to Dr Serrano, radiologist, who reports that there is NO brain edema on repeat CT head, and the SAH is diminished in size. Will continue to monitor. Objective - Vital Signs/Intake and Output Vital Signs (last 24 hours): Temp Pulse Resp BP Pulse Ox 97.9 F 77 12 161/85 H 95 10/30/17 09:45 10/30/17 14:50 10/30/17 14:50 10/30/17 14:00 10/30/17 14:40 - Medications Medications: Current Medications Acetaminophen (Tylenol 325mg Tab) 650 mg PO Q6H PRN PRN Reason: Pain, Mild (1-3) Dexamethasone (Decadron Inj) 4 mg IVP Q6H AMAN Sodium Chloride (Sodium Chloride 0.9%) 1,000 mls @ 50 mls/hr IV .Q20H AMAN Last Admin: 10/30/17 11:27 Dose: 50 mls/hr Ceftriaxone Sodium (Rocephin 1 Gram Ivpb) 1 gm in 100 mls @ 100 mls/hr IVPB DAILY AMAN PRN Reason: Protocol Labetalol HCl (Trandate) 5 mg IV Q4H PRN PRN Reason: Systolic Blood Pressure Metoclopramide HCl (Reglan) 10 mg IVP Q6H PRN PRN Reason: Nausea/Vomiting Morphine Sulfate (Morphine) 2 mg IVP Q4H PRN PRN Reason: Pain, moderate (4-7) Last Admin: 10/30/17 14:48 Dose: 2 mg Ondansetron HCl (Zofran Inj) 4 mg IVP Q6H PRN PRN Reason: Nausea/Vomiting Last Admin: 10/30/17 16:11 Dose: 4 mg Pantoprazole Sodium (Protonix Inj) 40 mg IVP DAILY AMAN
--- NOTE | 2017-10-30 19:11 | CP.PCM.PN ---
Subjective - Date & Time of Evaluation Date of Evaluation: 10/30/17 Time of Evaluation: 19:10 - Subjective Subjective: small amount of traumatic SAH seen on CT repeat shows furhter decrese in blood no neurosurgical intervention indicated can be d/c when otherwise medically clear Objective - Vital Signs/Intake and Output Vital Signs (last 24 hours): Temp Pulse Resp BP Pulse Ox 97.9 F 66 16 158/76 H 99 10/30/17 09:45 10/30/17 17:50 10/30/17 17:50 10/30/17 17:22 10/30/17 17:50 - Medications Medications: Current Medications Acetaminophen (Tylenol 325mg Tab) 650 mg PO Q6H PRN PRN Reason: Pain, Mild (1-3) Sodium Chloride (Sodium Chloride 0.9%) 1,000 mls @ 50 mls/hr IV .Q20H [facility] Last Admin: 10/30/17 11:27 Dose: 50 mls/hr Ceftriaxone Sodium (Rocephin 1 Gram Ivpb) 1 gm in 100 mls @ 100 mls/hr IVPB DAILY [facility] PRN Reason: Protocol Labetalol HCl (Trandate) 5 mg IV Q4H PRN PRN Reason: Systolic Blood Pressure Metoclopramide HCl (Reglan) 10 mg IVP Q6H PRN PRN Reason: Nausea/Vomiting Last Admin: 10/30/17 17:44 Dose: 10 mg Morphine Sulfate (Morphine) 2 mg IVP Q4H PRN PRN Reason: Pain, moderate (4-7) Last Admin: 10/30/17 14:48 Dose: 2 mg Ondansetron HCl (Zofran Inj) 4 mg IVP Q6H PRN PRN Reason: Nausea/Vomiting Last Admin: 10/30/17 16:11 Dose: 4 mg Pantoprazole Sodium (Protonix Inj) 40 mg IVP DAILY [facility]
--- NOTE | 2017-10-31 04:22 | CON ---
DATE: HISTORY OF PRESENT ILLNESS: This is a 67-year-old white female with past medical history of hypertension and anxiety, breast CA and came here because she fell in the ship going down the stair and hit her head. CAT scan of the head was done, which showed subarachnoid hemorrhage, small, and patient is doing much better, evaluate the patient. PAST MEDICAL HISTORY: Hyperlipidemia, hypertension, anxiety. ALLERGIES: SULFA. SOCIAL HISTORY: Does not smoke, does not drink. REVIEW OF SYSTEMS: Ten-point review of systems was negative except fall and sustained head trauma. PHYSICAL EXAMINATION: HEENT: Normocephalic, atraumatic. NECK: Supple. NEUROLOGIC: Alert, awake, and oriented x3. No aphasia. Cranial nerves II through XII are tested. Pupils are reactive. EOM intact. Visual escobar, full. No facial asymmetry. Tongue is midline. Motor examination: Spontaneous movements of all the extremities noted. Deep tendon reflexes 1+. Both plantars are downgoing. Sensory appears intact. Cerebellar and gait, deferred. IMPRESSION: Traumatic head trauma secondary to fall with subarachnoid hemorrhage, small. PLAN: We will repeat the CAT scan in the morning. LABORATORY DATA: WBC 9.7, hemoglobin 14.4, hematocrit 42.4, platelets 246. Sodium 149, potassium 5.3, chloride 110, CO2 29, glucose 121, BUN 21, creatinine 0.8, and continue present management. We will follow up in the morning. Continue neuro checks. Grupo Werner MD
[2017-10-31 06:27] LABS: BASO # 0.01 K/mm3 (0.0-2.0); BASO % 0.1 % (0.0-3.0); EOS % 0.5 % (1.5-5.0); GRAN # 5.37 (1.4-6.5); GRAN % 63.1 % (50.0-68.0); HEMOGLOBIN 12.5 g/dL (12.0-16.0); LYMPH # 2.4 (1.2-3.4); LYMPH % 27.9 % (22.0-35.0); MEAN CELL VOLUME 87.3 fl (80.0-105.0); MEAN CORPUSCULAR HEMOGLOBIN 28.8 pg (25.0-35.0); MEAN PLATELET VOLUME 11.1 fl (7.0-11.0); MONO # 0.7 (0.1-0.6); MONO % 8.4 % (1.0-6.0); RBC 4.34 10^6/uL (3.5-6.1); RED CELL DISTRIBUTION WIDTH 13.5 % (11.5-14.5); WHITE BLOOD COUNT 8.5 10^3/ul (4.5-11.0)
[2017-10-31] MEDS: Sodium Chloride 0.9% 1,000 ML IV SCH (07:00)
[2017-10-31 07:12] LABS: BLOOD UREA NITROGEN 17 mg/dL (7-21); CALCIUM 8.4 mg/dL (8.4-10.5); GFR AFRICAN-AMERICAN > 60; GFR NON-AFRICAN AMERICAN > 60
[2017-10-31] MEDS ORDERED: Magnesium Sulfate 2 GM in Sodium Chloride 0.9% 100 ML IV ONE (07:12)
--- NOTE | 2017-10-31 08:13 | CT ---
PROCEDURE: CT HEAD WITHOUT CONTRAST. HISTORY: SAH COMPARISON: 10/30/2017 TECHNIQUE: Axial computed tomography images were obtained through the head/brain without intravenous contrast. Radiation dose: Total exam DLP = mGy-cm. This CT exam was performed using one or more of the following dose reduction techniques: Automated exposure control, adjustment of the mA and/or kV according to patient size, and/or use of iterative reconstruction technique. FINDINGS: HEMORRHAGE: No intracranial hemorrhage. BRAIN: No mass effect or edema. No atrophy or chronic microvascular ischemic changes. VENTRICLES: Unremarkable. No hydrocephalus. CALVARIUM: Unremarkable. PARANASAL SINUSES: Unremarkable as visualized. No significant inflammatory changes. MASTOID AIR CELLS: Unremarkable as visualized. No inflammatory changes. OTHER FINDINGS: None. IMPRESSION: Normal CT of the Head. Resolution of subarachnoid hemorrhage.
--- NOTE | 2017-10-31 09:43 | CARD ---
APPROVED REPORT EXAM: Two-dimensional and M-mode echocardiogram with Doppler and color Doppler. Other Information Quality : AverageRhythm : INDICATION Syncope 2D DIMENSIONS Left Atrium (2D)3.8 (1.6-4.0cm)IVSd0.9 (0.7-1.1cm) LVDd4.3 (3.9-5.9cm)PWd1.0 (0.7-1.1cm) LVDs2.8 (2.5-4.0cm)FS (%) 34.8 % LVEF (%)64.0 (>50%) M-Mode DIMENSIONS Aortic Root3.10 (2.2-3.7cm)Aortic Cusp Exc.1.50 (1.5-2.0cm) Aortic Valve AoV Peak Hdhbqipx370.0cm/s Mitral Valve MV E Habvienx18.4cm/sMV A Jyitimuv33.4cm/sE/A ratio1.0 TDI Lateral E' Peak V12.80cm/sMedial E' Peak V8.97cm/sE/Lateral E'5.9 E/Medial E'8.4 Pulmonary Valve PV Peak Tqxqnuop36.4cm/sPV Peak Grad.2mmHg Tricuspid Valve TR Peak Pcyhqrkl863cj/sRAP [id number] Peak Gr.25mmHg [id number] LEFT VENTRICLE The left ventricle is normal size. There is normal left ventricular wall thickness. The left ventricular function is normal. The left ventricular ejection fraction is within the normal range. There is normal LV segmental wall motion. RIGHT VENTRICLE The right ventricle is normal size. ATRIA The left atrium is borderline dilated. The right atrium size is normal. The interatrial septum is intact with no evidence for an atrial septal defect. AORTIC VALVE The aortic valve is normal in structure. MITRAL VALVE The mitral valve is normal in structure. TRICUSPID VALVE The tricuspid valve is normal in structure. There is trace tricuspid regurgitation. PULMONIC VALVE The pulmonic valve is not well visualized. GREAT VESSELS The aortic root is normal in size. PERICARDIAL EFFUSION There is no pericardial effusion. <Conclusion> The left ventricle is normal size. There is normal left ventricular wall thickness. The left ventricular function is normal.
[2017-10-31] MEDS ORDERED: cefTRIAXone 1 gm 1 GM/100 ML BAG IVPB SCH (10:00)
--- NOTE | 2017-10-31 10:34 | CP.PCM.PN ---
<Fariba Oleary - Last Filed: 10/31/17 11:02> Subjective - Date & Time of Evaluation Date of Evaluation: 10/31/17 Time of Evaluation: 07:50 - Subjective Subjective: IM progress note for Dr Oden Patient with no acute events overnight. States the headache is still there, however better than yesterday, and is relieved with Tylenol. Patient is npo pending repeat CT. Denies cp, sob, nausea, vomiting or diarrhea. No abdominal pain. No events on the tele monitor. Objective - Vital Signs/Intake and Output Vital Signs (last 24 hours): Temp Pulse Resp BP Pulse Ox 97.8 F 70 16 120/52 L 92 L 10/31/17 07:06 10/31/17 06:50 10/31/17 06:50 10/31/17 06:00 10/31/17 06:50 Intake and Output: 10/31/17 10/31/17 06:59 18:59 Intake Total 900 Output Total 400 Balance 500 - Medications Medications: Current Medications Acetaminophen (Tylenol 325mg Tab) 650 mg PO Q6H PRN PRN Reason: Pain, Mild (1-3) Last Admin: 10/31/17 07:06 Dose: 650 mg Ceftriaxone Sodium (Rocephin 1 Gram Ivpb) 1 gm in 100 mls @ 100 mls/hr IVPB DAILY [facility] PRN Reason: Protocol Last Admin: 10/31/17 09:48 Dose: 100 mls/hr Labetalol HCl (Trandate) 5 mg IV Q4H PRN PRN Reason: Systolic Blood Pressure Metoclopramide HCl (Reglan) 10 mg IVP Q6H PRN PRN Reason: Nausea/Vomiting Last Admin: 10/30/17 17:44 Dose: 10 mg Morphine Sulfate (Morphine) 2 mg IVP Q4H PRN PRN Reason: Pain, moderate (4-7) Last Admin: 10/30/17 14:48 Dose: 2 mg Ondansetron HCl (Zofran Inj) 4 mg IVP Q6H PRN PRN Reason: Nausea/Vomiting Last Admin: 10/30/17 16:11 Dose: 4 mg Pantoprazole Sodium (Protonix Inj) 40 mg IVP DAILY [facility] Last Admin: 10/31/17 09:47 Dose: 40 mg - Labs Labs: 10/31/17 05:30 10/31/17 05:30 - Constitutional Appears: No Acute Distress - Head Exam Head Exam: ATRAUMATIC, NORMAL INSPECTION, NORMOCEPHALIC - Eye Exam Eye Exam: EOMI, Normal appearance, PERRL. absent: Scleral icterus Pupil Exam: NORMAL ACCOMODATION - ENT Exam ENT Exam: Mucous Membranes Moist - Neck Exam Neck Exam: Normal Inspection - Respiratory Exam Respiratory Exam: Clear to Ausculation Bilateral, NORMAL BREATHING PATTERN. absent: Rales, Rhonchi, Wheezes, Respiratory Distress, Stridor - Cardiovascular Exam Cardiovascular Exam: REGULAR RHYTHM, RRR, +S1, +S2. absent: Gallop, JVD, Rubs, Murmur - GI/Abdominal Exam GI & Abdominal Exam: Soft, Normal Bowel Sounds. absent: Distended, Firm, Guarding, Rigid, Tenderness - Extremities Exam Extremities Exam: Normal Capillary Refill, Normal Inspection. absent: Pedal Edema - Back Exam Back Exam: NORMAL INSPECTION - Neurological Exam Neurological Exam: Alert, Awake, Oriented x3 Additional comments: No focal neurologic deficit. - Psychiatric Exam Psychiatric exam: Normal Affect, Normal Mood - Skin Skin Exam: Dry, Intact, Normal Color, Warm Assessment and Plan - Assessment and Plan (Free Text) Assessment: Patient is 67 yo female with PMHx of HTN, HLD, SVT, breast cancer x2 ( s/p surgery, chemo and radiation), anxiety disorder, h/o TIAs [place]. Plan: 1) Syncope- might be multifactorial in nature ( alcohol- was drinking on cruise ship, versus arrhythmia versus dehydration versus uti) - Trop indeterminate, no events on tele, ekg normal. - Carotid echo with Bilateral 20-39% proximal ICA stenoses. Antegrade flow in both vertebral arteries. - C spine and hip/pelvic x-ray with no fractures. 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 - Patient to be transferred out of the icu - PT eval - further rec as per neurology - No intervention as per neurosurgery 2) chronic htn0 will resume home meds 3) Hypernatremia- resolved 4) Hyperkalemia- resolved 5) Hypomagnesemia- being repleted. 6) UTI- - urine culture pending - afebrile, no leukocytosis - continue Rocephin pending sensitivity. 7) h/o SVT- ekg normal, will monitor tele 8) Elevated pro bnp- echp normal and no signs of chf. 9) DVT/gi prophylaxis: VTE device and protonix. 10) Dispo: PT eval, likely discharge home tomorrow. Patient seen, examined and case discussed with Dr Oden. <Priscila Oden - Last Filed: 10/31/17 14:16> Objective - Vital Signs/Intake and Output Vital Signs (last 24 hours): Temp Pulse Resp BP Pulse Ox 97.8 F 76 13 143/69 97 10/31/17 07:06 10/31/17 10:00 10/31/17 10:00 10/31/17 09:00 10/31/17 10:00 Intake and Output: 10/31/17 10/31/17 06:59 18:59 Intake Total 900 120 Output Total 400 Balance 500 120 - Medications Medications: Current Medications Acetaminophen (Tylenol 325mg Tab) 650 mg PO Q6H PRN PRN Reason: Pain, Mild (1-3) Last Admin: 10/31/17 13:12 Dose: 650 mg Atorvastatin Calcium (Lipitor) 20 mg PO DIN [facility] Buspirone HCl (Buspar) 5 mg PO DAILY [facility] PRN Reason: Protocol Last Admin: 10/31/17 13:06 Dose: 5 mg Lisinopril (Zestril) 40 mg PO DAILY [facility] Metoclopramide HCl (Reglan) 10 mg IVP Q6H PRN PRN Reason: Nausea/Vomiting Last Admin: 10/30/17 17:44 Dose: 10 mg Metoprolol Tartrate (Lopressor) 50 mg PO BID [facility] Morphine Sulfate (Morphine) 2 mg IVP Q4H PRN PRN Reason: Pain, moderate (4-7) Last Admin: 10/30/17 14:48 Dose: 2 mg Ondansetron HCl (Zofran Inj) 4 mg IVP Q6H PRN PRN Reason: Nausea/Vomiting Last Admin: 10/30/17 16:11 Dose: 4 mg Pantoprazole Sodium (Protonix Ec Tab) 40 mg PO 0600 [facility] - Labs Labs: 10/31/17 05:30 10/31/17 05:30 Attending/Attestation - Attestation I have personally seen and examined this patient.: Yes I have fully participated in the care of the patient.: Yes I have reviewed all pertinent clinical information, including history, physical exam and plan: Yes Notes (Text): 10/31/17 14:12 Attending note; Patient seen and examined with resident in ICU. Patient is alert and awake and oriented. Denies any headache. Denies any nausea, vomiting. Denies any chest pain, shortness of breath. Patient is 67 year old female with PMHx of HTN, HLD, SVT with ablation, breast cancer x2 ( s/p surgery, chemo and radiation), anxiety disorder, h/o TIAs brought in [place]. CT head showed small subarachnoid hemorrhage. Repeat CT showed resolution of hemorrhage. Neurosurgery evaluation appreciated. Neurology evaluation appreciated. Patient is medically stable. History of SVT; currently no significant arrhythmia. Cardiology evaluation appreciated. Borderline troponin; suggested stress test as outpatient. Echocardiogram normal. Carotid Doppler without significant stenosis. Hypertension; continue metoprolol and lisinopril. Monitor blood pressure closely. Transfer the patient out of ICU. PT evaluation requested. Possible discharge home tomorrow if clinically stable. Upon discharge patient will follow-up with PMD in [facility]. Patient will get outpatient stress test. The diagnosis, follow-up plan discussed with patient in detail.
--- NOTE | 2017-10-31 10:54 | CP.CCUPN ---
<Homero Haq - Last Filed: 10/31/17 10:44> CCU Subjective - Physician Review Subjective (Free Text): ICU Progress Note Pt seen and examined at bedside. No acute overnight events. Patient denied CP, SOB, n/v/d, abdominal pain, fever, chills, [place], dizziness, fatigue, or syncopal events. CCU Objective - Vital Signs / Intake & Output Vital Signs (Last 4 hours): Vital Signs Temp Pulse Resp Pulse Ox 10/31/17 07:06 97.8 F 10/31/17 06:50 70 16 92 L Intake and Output (Last 8hrs): Intake & Output 10/30/17 10/31/17 10/31/17 22:59 06:59 14:59 Intake Total 900 Output Total 400 Balance 500 Intake: IV 600 Left Antecubital 600 Oral 300 Output: Urine 400 Urine, Voided 400 Other: # Voids Urine, Voided 1 - Physical Exam Head: Positive for: Atraumatic, Normocephalic, Other (no facial tenderness or swelling). Negative for: Tenderness, Contusion, Swelling, Ecchymosis, Abrasion , Laceration Pupils: Positive for: PERRL Extroacular Muscles: Positive for: EOMI Conjunctiva: Positive for: Normal Ears: Positive for: NORMAL TM, Normal Canal Mouth: Positive for: Moist Mucous Membranes Pharnyx: Negative for: ERYTHEMA, EXUDATE, TONSILS ENLARGED Nose (External): Positive for: Atraumatic. Negative for: Abrasion, Contusion, Laceration Nose (Internal): Positive for: Normal Inspection, No Active Bleeding. Negative for: Rhinorrhea, Septal Hematoma, Epistaxis Neck: Positive for: Normal Range of Motion, Trachea Midline. Negative for: Meningeal Signs, MIDLINE TENDERNESS, Paraspinal Tenderness, Lymphadenopathy Respiratory/Chest: Positive for: Clear to Auscultation, Good Air Exchange. Negative for: Respiratory Distress, Accessory Muscle Use, Wheezes, Decreased Breath Sounds, Rales, Retracting, Rhonchi, Tachypneic Cardiovascular: Positive for: Regular Rate and Rhythm, Normal S1, S2. Negative for: Murmurs Abdomen: Negative for: Tenderness, Distention, Peritoneal Signs, Rebound, Guarding Back: Positive for: Normal Inspection. Negative for: CVA Tenderness, Midline Tenderness, Paraspinal Tenderness, Pain with Leg Raise, Decubitus Ulcer Upper Extremity: Positive for: Normal Inspection, Normal ROM, NORMAL PULSES, Neurovascularly Intact, Capillary Refill < 2s. Negative for: Cyanosis, Edema, Tenderness, Swelling, Deformity Lower Extremity: Positive for: Normal Inspection, NORMAL PULSES, Normal ROM, Neurovascularly Intact, Capillary Refill < 2 s. Negative for: Edema, Tenderness , Swelling, Deformity Neurological: Positive for: GCS=15, CN II-XII Intact, Speech Normal, Motor Func Grossly Intact, Gait Normal, Other (Normal finger to nose test, normal heel to reynolds test, no drift, walking with normal gait and posture, full sensation intact to sharp and dull, no focal neurological deficits, GCS 15, NIHSS is 0) Skin: Positive for: Warm, Dry, Normal Color. Negative for: Rashes Psychiatric: Positive for: Alert, Normal Insight, Normal Concentration, Normal Affect - Medications Active Medications: Active Medications Generic Name Dose Route Start Last Admin Trade Name Freq PRN Reason Stop Dose Admin Acetaminophen 650 mg 10/30/17 14:30 10/31/17 07:06 Tylenol 325mg Tab PO 650 mg Q6H PRN Administration Pain, Mild (1-3) Ceftriaxone Sodium 1 gm in 100 mls @ 100 mls/hr 10/31/17 10:00 10/31/17 09:48 Rocephin 1 Gram Ivpb IVPB 100 mls/hr DAILY AMAN Administration Protocol Labetalol HCl 5 mg 10/30/17 13:44 Trandate IV Q4H PRN Systolic Blood Pressure Metoclopramide HCl 10 mg 10/30/17 16:56 10/30/17 17:44 Reglan IVP 10 mg Q6H PRN Administration Nausea/Vomiting Morphine Sulfate 2 mg 10/30/17 14:30 10/30/17 14:48 Morphine IVP 2 mg Q4H PRN Administration Pain, moderate (4-7) Ondansetron HCl 4 mg 10/30/17 15:26 10/30/17 16:11 Zofran Inj IVP 4 mg Q6H PRN Administration Nausea/Vomiting Pantoprazole Sodium 40 mg 11/01/17 06:00 Protonix Ec Tab PO 0600 AMAN - Patient Studies Lab Studies: Lab Studies 10/31/17 10/31/17 10/31/17 Range/Units 05:30 05:30 01:59 WBC 8.5 (4.5-11.0) 10^3/ul RBC 4.34 (3.5-6.1) 10^6/uL Hgb 12.5 (12.0-16.0) g/dL Hct 37.9 (36.0-48.0) % MCV 87.3 (80.0-105.0) fl MCH 28.8 (25.0-35.0) pg MCHC 33.0 (31.0-37.0) g/dl RDW 13.5 (11.5-14.5) % Plt Count 211 (120.0-450.0) 10^3/uL MPV 11.1 H (7.0-11.0) fl Gran % 63.1 (50.0-68.0) % Lymph % (Auto) 27.9 (22.0-35.0) % Dixie % (Auto) 8.4 H (1.0-6.0) % Eos % (Auto) 0.5 L (1.5-5.0) % Baso % (Auto) 0.1 (0.0-3.0) % Gran # 5.37 (1.4-6.5) Lymph # (Auto) 2.4 (1.2-3.4) Dixie # (Auto) 0.7 H (0.1-0.6) Eos # (Auto) 0.0 (0.0-0.7) Baso # (Auto) 0.01 (0.0-2.0) K/mm3 Sodium 146 (132-148) mmol/L Potassium 3.8 (3.6-5.0) mmol/L Chloride 110 H (98-107) mmol/L Carbon Dioxide 27 (21-33) mmol/L Anion Gap 14 (10-20) BUN 17 (7-21) mg/dL Creatinine 0.7 (0.7-1.2) mg/dl Est GFR ( Amer) > 60 Est GFR (Non-Af Amer) > 60 POC Glucose (mg/dL) 135 H (65-110) mg/dL Random Glucose 105 (70-110) mg/dL Calcium 8.4 (8.4-10.5) mg/dL Phosphorus 4.2 (2.5-4.5) mg/dL Magnesium 1.6 L (1.7-2.2) mg/dL Troponin I ng/mL Triglycerides (35-160) mg/dL Cholesterol (130-200) mg/dL LDL Cholesterol Direct (0-129) mg/dL HDL Cholesterol (29-60) mg/dL TSH 3rd Generation (0.46-4.68) mIU/mL Alcohol, Quantitative (0-10) mg/dL Blood Type Confirm 10/31/17 10/30/17 10/30/17 Range/Units 00:30 21:27 17:56 WBC (4.5-11.0) 10^3/ul RBC (3.5-6.1) 10^6/uL Hgb (12.0-16.0) g/dL Hct (36.0-48.0) % MCV (80.0-105.0) fl MCH (25.0-35.0) pg MCHC (31.0-37.0) g/dl RDW (11.5-14.5) % Plt Count (120.0-450.0) 10^3/uL MPV (7.0-11.0) fl Gran % (50.0-68.0) % Lymph % (Auto) (22.0-35.0) % Dixie % (Auto) (1.0-6.0) % Eos % (Auto) (1.5-5.0) % Baso % (Auto) (0.0-3.0) % Gran # (1.4-6.5) Lymph # (Auto) (1.2-3.4) Dixie # (Auto) (0.1-0.6) Eos # (Auto) (0.0-0.7) Baso # (Auto) (0.0-2.0) K/mm3 Sodium (132-148) mmol/L Potassium (3.6-5.0) mmol/L Chloride (98-107) mmol/L Carbon Dioxide (21-33) mmol/L Anion Gap (10-20) BUN (7-21) mg/dL Creatinine (0.7-1.2) mg/dl Est GFR ( Amer) Est GFR (Non-Af Amer) POC Glucose (mg/dL) 125 H 148 H (65-110) mg/dL Random Glucose (70-110) mg/dL Calcium (8.4-10.5) mg/dL Phosphorus (2.5-4.5) mg/dL Magnesium (1.7-2.2) mg/dL Troponin I 0.09 ng/mL Triglycerides (35-160) mg/dL Cholesterol (130-200) mg/dL LDL Cholesterol Direct (0-129) mg/dL HDL Cholesterol (29-60) mg/dL TSH 3rd Generation (0.46-4.68) mIU/mL Alcohol, Quantitative (0-10) mg/dL Blood Type Confirm 10/30/17 10/30/17 10/30/17 Range/Units 16:30 13:50 13:50 WBC (4.5-11.0) 10^3/ul RBC (3.5-6.1) 10^6/uL Hgb (12.0-16.0) g/dL Hct (36.0-48.0) % MCV (80.0-105.0) fl MCH (25.0-35.0) pg MCHC (31.0-37.0) g/dl RDW (11.5-14.5) % Plt Count (120.0-450.0) 10^3/uL MPV (7.0-11.0) fl Gran % (50.0-68.0) % Lymph % (Auto) (22.0-35.0) % Dixie % (Auto) (1.0-6.0) % Eos % (Auto) (1.5-5.0) % Baso % (Auto) (0.0-3.0) % Gran # (1.4-6.5) Lymph # (Auto) (1.2-3.4) Dixie # (Auto) (0.1-0.6) Eos # (Auto) (0.0-0.7) Baso # (Auto) (0.0-2.0) K/mm3 Sodium (132-148) mmol/L Potassium (3.6-5.0) mmol/L Chloride (98-107) mmol/L Carbon Dioxide (21-33) mmol/L Anion Gap (10-20) BUN (7-21) mg/dL Creatinine (0.7-1.2) mg/dl Est GFR ( Amer) Est GFR (Non-Af Amer) POC Glucose (mg/dL) (65-110) mg/dL Random Glucose (70-110) mg/dL Calcium (8.4-10.5) mg/dL Phosphorus (2.5-4.5) mg/dL Magnesium (1.7-2.2) mg/dL Troponin I 0.09 D ng/mL Triglycerides 127 (35-160) mg/dL Cholesterol 174 (130-200) mg/dL LDL Cholesterol Direct 92 (0-129) mg/dL HDL Cholesterol 54 (29-60) mg/dL TSH 3rd Generation 1.65 (0.46-4.68) mIU/mL Alcohol, Quantitative < 10 (0-10) mg/dL Blood Type Confirm 10/30/17 Range/Units 12:15 WBC (4.5-11.0) 10^3/ul RBC (3.5-6.1) 10^6/uL Hgb (12.0-16.0) g/dL Hct (36.0-48.0) % MCV (80.0-105.0) fl MCH (25.0-35.0) pg MCHC (31.0-37.0) g/dl RDW (11.5-14.5) % Plt Count (120.0-450.0) 10^3/uL MPV (7.0-11.0) fl Gran % (50.0-68.0) % Lymph % (Auto) (22.0-35.0) % Dixie % (Auto) (1.0-6.0) % Eos % (Auto) (1.5-5.0) % Baso % (Auto) (0.0-3.0) % Gran # (1.4-6.5) Lymph # (Auto) (1.2-3.4) Dixie # (Auto) (0.1-0.6) Eos # (Auto) (0.0-0.7) Baso # (Auto) (0.0-2.0) K/mm3 Sodium (132-148) mmol/L Potassium (3.6-5.0) mmol/L Chloride (98-107) mmol/L Carbon Dioxide (21-33) mmol/L Anion Gap (10-20) BUN (7-21) mg/dL Creatinine (0.7-1.2) mg/dl Est GFR ( Amer) Est GFR (Non-Af Amer) POC Glucose (mg/dL) (65-110) mg/dL Random Glucose (70-110) mg/dL Calcium (8.4-10.5) mg/dL Phosphorus (2.5-4.5) mg/dL Magnesium (1.7-2.2) mg/dL Troponin I ng/mL Triglycerides (35-160) mg/dL Cholesterol (130-200) mg/dL LDL Cholesterol Direct (0-129) mg/dL HDL Cholesterol (29-60) mg/dL TSH 3rd Generation (0.46-4.68) mIU/mL Alcohol, Quantitative (0-10) mg/dL Blood Type Confirm O POSITIVE Laboratory Results - last 24 hr 10/30/17 10/30/17 10/30/17 12:15 13:50 13:50 WBC RBC Hgb Hct MCV MCH MCHC RDW Plt Count MPV Gran % Lymph % (Auto) Dixie % (Auto) Eos % (Auto) Baso % (Auto) Gran # Lymph # (Auto) Dixie # (Auto) Eos # (Auto) Baso # (Auto) Sodium Potassium Chloride Carbon Dioxide Anion Gap BUN Creatinine Est GFR ( Amer) Est GFR (Non-Af Amer) POC Glucose (mg/dL) Random Glucose Calcium Phosphorus Magnesium Troponin I Triglycerides 127 Cholesterol 174 LDL Cholesterol Direct 92 HDL Cholesterol 54 TSH 3rd Generation 1.65 Alcohol, Quantitative < 10 Blood Type Confirm O POSITIVE 10/30/17 10/30/17 10/30/17 16:30 17:56 21:27 WBC RBC Hgb Hct MCV MCH MCHC RDW Plt Count MPV Gran % Lymph % (Auto) Dixie % (Auto) Eos % (Auto) Baso % (Auto) Gran # Lymph # (Auto) Dixie # (Auto) Eos # (Auto) Baso # (Auto) Sodium Potassium Chloride Carbon Dioxide Anion Gap BUN Creatinine Est GFR ( Amer) Est GFR (Non-Af Amer) POC Glucose (mg/dL) 148 H 125 H Random Glucose Calcium Phosphorus Magnesium Troponin I 0.09 D Triglycerides Cholesterol LDL Cholesterol Direct HDL Cholesterol TSH 3rd Generation Alcohol, Quantitative Blood Type Confirm 10/31/17 10/31/17 10/31/17 00:30 01:59 05:30 WBC 8.5 RBC 4.34 Hgb 12.5 Hct 37.9 MCV 87.3 MCH 28.8 MCHC 33.0 RDW 13.5 Plt Count 211 MPV 11.1 H Gran % 63.1 Lymph % (Auto) 27.9 Dixie % (Auto) 8.4 H Eos % (Auto) 0.5 L Baso % (Auto) 0.1 Gran # 5.37 Lymph # (Auto) 2.4 Dixie # (Auto) 0.7 H Eos # (Auto) 0.0 Baso # (Auto) 0.01 Sodium Potassium Chloride Carbon Dioxide Anion Gap BUN Creatinine Est GFR ( Amer) Est GFR (Non-Af Amer) POC Glucose (mg/dL) 135 H Random Glucose Calcium Phosphorus Magnesium Troponin I 0.09 Triglycerides Cholesterol LDL Cholesterol Direct HDL Cholesterol TSH 3rd Generation Alcohol, Quantitative Blood Type Confirm 10/31/17 05:30 WBC RBC Hgb Hct MCV MCH MCHC RDW Plt Count MPV Gran % Lymph % (Auto) Dixie % (Auto) Eos % (Auto) Baso % (Auto) Gran # Lymph # (Auto) Dixie # (Auto) Eos # (Auto) Baso # (Auto) Sodium 146 Potassium 3.8 Chloride 110 H Carbon Dioxide 27 Anion Gap 14 BUN 17 Creatinine 0.7 Est GFR ( Amer) > 60 Est GFR (Non-Af Amer) > 60 POC Glucose (mg/dL) Random Glucose 105 Calcium 8.4 Phosphorus 4.2 Magnesium 1.6 L Troponin I Triglycerides Cholesterol LDL Cholesterol Direct HDL Cholesterol TSH 3rd Generation Alcohol, Quantitative Blood Type Confirm Fingerstick Blood Sugar Results: 135 Critical Care Progress Note - Nutrition Nutrition: Nutrition Category Date Time Status Heart Healthy Diet [DIET] Diets 10/31/17 Breakfast Ordered Assessment/Plan - Assessment and Plan (Free Text) Assessment: 67 yo F with PMH of HTN, HLD, anxiety, SVT and breast CA admitted to the ICU for subarachnoid hemorrhage 2/[address] this AM showed resolution of subarachnoid hemorrhage. Patient stable overnight will be transferred to med/ surg. Plan: Neuro: - AAOx3 - Head CT showed subarachnoid hemorrhage in the left frontal lobe - Repeat head CT this AM showed resolution of subarachnoid hemorrhage - Maintain normothermia - Neuro consulted - Neurosurg consulted - no surgical intervention CV: - Hemodynamically stable - Carotid US and Echo normal - EKG reviewed and shows NSR - Labetalol prn for HTN - Maintain MAP > 65 - Cardiology consulted Pulm: - CXR negative - Maintain O2 > 90% GI: - Heart healthy diet - Reglan prn for nausea - Protonix for GI PPx Renal: - Mg 1.6, repleted - Monitor electrolytes, replete as needed - Avoid nephrotoxic medications - Maintain euvolemia Heme: - Monitor H/H - SCD's for DVT PPx Endo: - Maintain euglycemia ID: - UA showed trace leukocyte esterase - Urine cultures pending - Ceftriaxone IVPB MSK: - Hip/pelvis xray negative - Cervical CT negative Pt seen and discussed in detail with Dr. Jay. Gomez Haq, PGY1 <Thierry Jay - Last Filed: 10/31/17 15:56> CCU Objective - Vital Signs / Intake & Output Vital Signs (Last 4 hours): Vital Signs Temp Pulse Resp BP Pulse Ox 10/31/17 15:48 76 161/76 H 10/31/17 14:00 98.2 F 76 20 161/76 H 97 Intake and Output (Last 8hrs): Intake & Output 10/31/17 10/31/17 10/31/17 06:59 14:59 22:59 Intake Total 900 120 Output Total 400 Balance 500 120 Weight 158 lb Intake: IV 600 Left Antecubital 600 Oral 300 120 Output: Urine 400 Urine, Voided 400 Other: # Voids Urine, Voided 1 0 # Bowel Movements 0 - Medications Active Medications: Active Medications Generic Name Dose Route Start Last Admin Trade Name Freq PRN Reason Stop Dose Admin Acetaminophen 650 mg 10/30/17 14:30 10/31/17 13:12 Tylenol 325mg Tab PO 650 mg Q6H PRN Administration Pain, Mild (1-3) Atorvastatin Calcium 20 mg 10/31/17 17:00 Lipitor PO DIN AMAN Buspirone HCl 5 mg 10/31/17 12:15 10/31/17 13:06 Buspar PO 5 mg DAILY AMAN Administration Protocol Lisinopril 40 mg 11/01/17 10:00 Zestril PO DAILY AMAN Metoclopramide HCl 10 mg 10/30/17 16:56 10/30/17 17:44 Reglan IVP 10 mg Q6H PRN Administration Nausea/Vomiting Metoprolol Tartrate 50 mg 10/31/17 18:00 10/31/17 15:48 Lopressor PO 50 mg BID AMAN Administration Morphine Sulfate 2 mg 10/30/17 14:30 10/30/17 14:48 Morphine IVP 2 mg Q4H PRN Administration Pain, moderate (4-7) Ondansetron HCl 4 mg 10/30/17 15:26 10/30/17 16:11 Zofran Inj IVP 4 mg Q6H PRN Administration Nausea/Vomiting Pantoprazole Sodium 40 mg 11/01/17 06:00 Protonix Ec Tab PO 0600 [facility] - Patient Studies Lab Studies: Lab Studies 10/31/17 10/31/17 10/31/17 Range/Units 09:48 05:30 05:30 WBC 8.5 (4.5-11.0) 10^3/ul RBC 4.34 (3.5-6.1) 10^6/uL Hgb 12.5 (12.0-16.0) g/dL Hct 37.9 (36.0-48.0) % MCV 87.3 (80.0-105.0) fl MCH 28.8 (25.0-35.0) pg MCHC 33.0 (31.0-37.0) g/dl RDW 13.5 (11.5-14.5) % Plt Count 211 (120.0-450.0) 10^3/uL MPV 11.1 H (7.0-11.0) fl Gran % 63.1 (50.0-68.0) % Lymph % (Auto) 27.9 (22.0-35.0) % Dixie % (Auto) 8.4 H (1.0-6.0) % Eos % (Auto) 0.5 L (1.5-5.0) % Baso % (Auto) 0.1 (0.0-3.0) % Gran # 5.37 (1.4-6.5) Lymph # (Auto) 2.4 (1.2-3.4) Dixie # (Auto) 0.7 H (0.1-0.6) Eos # (Auto) 0.0 (0.0-0.7) Baso # (Auto) 0.01 (0.0-2.0) K/mm3 Sodium 146 (132-148) mmol/L Potassium 3.8 (3.6-5.0) mmol/L Chloride 110 H (98-107) mmol/L Carbon Dioxide 27 (21-33) mmol/L Anion Gap 14 (10-20) BUN 17 (7-21) mg/dL Creatinine 0.7 (0.7-1.2) mg/dl Est GFR ( Amer) > 60 Est GFR (Non-Af Amer) > 60 POC Glucose (mg/dL) 81 (65-110) mg/dL Random Glucose 105 (70-110) mg/dL Calcium 8.4 (8.4-10.5) mg/dL Phosphorus 4.2 (2.5-4.5) mg/dL Magnesium 1.6 L (1.7-2.2) mg/dL Troponin I ng/mL 10/31/17 10/31/17 10/30/17 Range/Units 01:59 00:30 21:27 WBC (4.5-11.0) 10^3/ul RBC (3.5-6.1) 10^6/uL Hgb (12.0-16.0) g/dL Hct (36.0-48.0) % MCV (80.0-105.0) fl MCH (25.0-35.0) pg MCHC (31.0-37.0) g/dl RDW (11.5-14.5) % Plt Count (120.0-450.0) 10^3/uL MPV (7.0-11.0) fl Gran % (50.0-68.0) % Lymph % (Auto) (22.0-35.0) % Dixie % (Auto) (1.0-6.0) % Eos % (Auto) (1.5-5.0) % Baso % (Auto) (0.0-3.0) % Gran # (1.4-6.5) Lymph # (Auto) (1.2-3.4) Dixie # (Auto) (0.1-0.6) Eos # (Auto) (0.0-0.7) Baso # (Auto) (0.0-2.0) K/mm3 Sodium (132-148) mmol/L Potassium (3.6-5.0) mmol/L Chloride (98-107) mmol/L Carbon Dioxide (21-33) mmol/L Anion Gap (10-20) BUN (7-21) mg/dL Creatinine (0.7-1.2) mg/dl Est GFR ( Amer) Est GFR (Non-Af Amer) POC Glucose (mg/dL) 135 H 125 H (65-110) mg/dL Random Glucose (70-110) mg/dL Calcium (8.4-10.5) mg/dL Phosphorus (2.5-4.5) mg/dL Magnesium (1.7-2.2) mg/dL Troponin I 0.09 ng/mL 10/30/17 10/30/17 Range/Units 17:56 16:30 WBC (4.5-11.0) 10^3/ul RBC (3.5-6.1) 10^6/uL Hgb (12.0-16.0) g/dL Hct (36.0-48.0) % MCV (80.0-105.0) fl MCH (25.0-35.0) pg MCHC (31.0-37.0) g/dl RDW (11.5-14.5) % Plt Count (120.0-450.0) 10^3/uL MPV (7.0-11.0) fl Gran % (50.0-68.0) % Lymph % (Auto) (22.0-35.0) % Dixie % (Auto) (1.0-6.0) % Eos % (Auto) (1.5-5.0) % Baso % (Auto) (0.0-3.0) % Gran # (1.4-6.5) Lymph # (Auto) (1.2-3.4) Dixie # (Auto) (0.1-0.6) Eos # (Auto) (0.0-0.7) Baso # (Auto) (0.0-2.0) K/mm3 Sodium (132-148) mmol/L Potassium (3.6-5.0) mmol/L Chloride (98-107) mmol/L Carbon Dioxide (21-33) mmol/L Anion Gap (10-20) BUN (7-21) mg/dL Creatinine (0.7-1.2) mg/dl Est GFR ( Amer) Est GFR (Non-Af Amer) POC Glucose (mg/dL) 148 H (65-110) mg/dL Random Glucose (70-110) mg/dL Calcium (8.4-10.5) mg/dL Phosphorus (2.5-4.5) mg/dL Magnesium (1.7-2.2) mg/dL Troponin I 0.09 D ng/mL Laboratory Results - last 24 hr 10/30/17 10/30/17 10/30/17 16:30 17:56 21:27 WBC RBC Hgb Hct MCV MCH MCHC RDW Plt Count MPV Gran % Lymph % (Auto) Dixie % (Auto) Eos % (Auto) Baso % (Auto) Gran # Lymph # (Auto) Dixie # (Auto) Eos # (Auto) Baso # (Auto) Sodium Potassium Chloride Carbon Dioxide Anion Gap BUN Creatinine Est GFR ( Amer) Est GFR (Non-Af Amer) POC Glucose (mg/dL) 148 H 125 H Random Glucose Calcium Phosphorus Magnesium Troponin I 0.09 D 10/31/17 10/31/17 10/31/17 00:30 01:59 05:30 WBC 8.5 RBC 4.34 Hgb 12.5 Hct 37.9 MCV 87.3 MCH 28.8 MCHC 33.0 RDW 13.5 Plt Count 211 MPV 11.1 H Gran % 63.1 Lymph % (Auto) 27.9 Dixie % (Auto) 8.4 H Eos % (Auto) 0.5 L Baso % (Auto) 0.1 Gran # 5.37 Lymph # (Auto) 2.4 Dixie # (Auto) 0.7 H Eos # (Auto) 0.0 Baso # (Auto) 0.01 Sodium Potassium Chloride Carbon Dioxide Anion Gap BUN Creatinine Est GFR ( Amer) Est GFR (Non-Af Amer) POC Glucose (mg/dL) 135 H Random Glucose Calcium Phosphorus Magnesium Troponin I 0.09 10/31/17 10/31/17 05:30 09:48 WBC RBC Hgb Hct MCV MCH MCHC RDW Plt Count MPV Gran % Lymph % (Auto) Dixie % (Auto) Eos % (Auto) Baso % (Auto) Gran # Lymph # (Auto) Dixie # (Auto) Eos # (Auto) Baso # (Auto) Sodium 146 Potassium 3.8 Chloride 110 H Carbon Dioxide 27 Anion Gap 14 BUN 17 Creatinine 0.7 Est GFR ( Amer) > 60 Est GFR (Non-Af Amer) > 60 POC Glucose (mg/dL) 81 Random Glucose 105 Calcium 8.4 Phosphorus 4.2 Magnesium 1.6 L Troponin I Critical Care Progress Note - Nutrition Nutrition: Nutrition Category Date Time Status Heart Healthy Diet [DIET] Diets 10/31/17 Breakfast Ordered Attending/Attestation - Attestation I have personally seen and examined this patient.: Yes I have fully participated in the care of the patient.: Yes I have reviewed all pertinent clinical information: Yes Notes (Text): 10/31/17 15:[address] Jay note
--- NOTE | 2017-10-31 13:23 | PN ---
DATE: 10/31/2017 SUBJECTIVE: The patient is seen and examined at bedside. She is comfortable. She talks full sentences. She is not in respiratory or otherwise distress. She complains on frontal and occipital headache which; however, substantially improved with Tylenol. PHYSICAL EXAMINATION: VITAL SIGNS: Heart rate 75, blood pressure 150/71, oxygen saturation 95% on room air, respiratory rate 15. HEENT: ENT: Head and neck atraumatic. LUNGS: Clear to auscultation bilaterally. HEART: Regular rate and rhythm. S1 and S2 normal. ABDOMEN: Soft, nontender, nondistended. MUSCULOSKELETAL: No C/C/E. NEUROLOGIC: The patient moves all extremities spontaneously. SKIN: Moist. PSYCHIATRIC: The patient is alert, awake and oriented x3. LABORATORY DATA: WBC 8.5, hemoglobin 12.5, platelet count 211. Sodium 146, potassium 3.8, chloride 110, carbon dioxide 27, BUN 17, creatinine 0.7, glucose 105. Magnesium 1.6. MEDICATIONS: Tylenol p.r.n., labetalol p.r.n., Reglan p.r.n., morphine p.r.n., Zofran p.r.n., Protonix, ceftriaxone, normal saline 50 mL per hour. CAT scan of the head appears to be unchanged (official report is pending). ASSESSMENT AND PLAN: This 67-year-old lady who presented with very traumatic subarachnoid hemorrhage, which on subsequent CT head, appears to be decreasing. The patient currently is asymptomatic. Her neuro exam is grossly unremarkable and motor strength in both upper and lower extremities 5/5. She is alert, awake, maintain thoughtful conversation. We will continue target euvolemia, euglycemia, normothermia and oxygen saturation more than 90%.. Okay to downgrade to Med-Surg. ccm time 40 min Thierry Jay MD MTDD
[2017-10-31 15:55] VITALS: RESP 20
--- NOTE | 2017-10-31 15:55 | CON ---
DATE: 10/31/2017 CARDIOLOGY CONSULTATION HISTORY OF PRESENT ILLNESS: The patient is a 67-year-old woman who had a syncopal episode while on her cruise ship coming back from [place]. The patient apparently had a syncopal episode, resulted in a fall down of flight of stairs while going to breakfast, resulted in head trauma and a subdural hematoma. The patient does not remember the event much, but has had no angina and no chest pain prior to. Her cardiac risk factors include a history of hypertension, treated with medications as well as borderline diabetes mellitus. She does have hypercholesterolemia. She has a strong family history for CAD, but no previous myocardial infarction and no cardiac symptoms in the past other than history of SVT, in which she has undergone ablation x2 at [facility]. She is currently on no medications for arrhythmias. SOCIAL HISTORY: The patient denies smoking. REVIEW OF SYSTEMS: A 14-point review of systems was reviewed in detail. No palpitations, no angina, no shortness of breath. No edema in the lower extremities elicited. No previous syncopal episodes. There have been 2 episodes of what were thought to be TIAs, in which her neurologist told her were not TIAs. PHYSICAL EXAMINATION: VITAL SIGNS: Blood pressure is 120/52, heart rate is in the 70s, normal sinus rhythm. NECK: Negative JVD. LUNGS: Without rales. HEART: S1, S2. EXTREMITIES: Without edema. LABORATORY DATA: EKG is unremarkable. Laboratories are notable for troponin of 0.09 x2. Glucose is remained elevated varying from 125 to 148. Hemoglobin is 12.5. Echocardiogram reveals good LV function with no LV outflow obstruction. CT scan shows a post-traumatic small subdural hematoma. IMPRESSION: 1. Syncope. 2. Traumatic head trauma with small subdural hematoma. 3. Indeterminate elevated troponin with a high probability for coronary artery disease. 4. History of supraventricular tachycardia, status post ablation. 5. Atherosclerosis. 6. Hypercholesterolemia. 7. Hypertension. PLAN: Given these findings, there is no obvious cardiac cause of her syncope noted so far. I have discussed with the patient about her high probability for CAD. She will need an investigation into her coronary arteries once her subdural hematoma is resolved. 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 Scott Muñoz MD [facility] # [id number]
[2017-11-01 05:09] VITALS: BP 160/77; PULSE 73
[2017-11-01] MEDS ORDERED: Pantoprazole 40 mg EC Tab PO SCH (06:00)
[2017-11-01 06:54] LABS: BASO # 0.01 K/mm3 (0.0-2.0); BASO % 0.1 % (0.0-3.0); EOS # 0.2 (0.0-0.7); GRAN # 3.97 (1.4-6.5); GRAN % 54.3 % (50.0-68.0); HEMOGLOBIN 12.4 g/dL (12.0-16.0); LYMPH # 2.6 (1.2-3.4); MEAN CELL VOLUME 87.4 fl (80.0-105.0); MEAN CORPUSCULAR HEMOGLOBIN 28.9 pg (25.0-35.0); MEAN CORPUSCULAR HGB CONC 33.1 g/dl (31.0-37.0); MEAN PLATELET VOLUME 10.8 fl (7.0-11.0); MONO # 0.6 (0.1-0.6); MONO % 7.6 % (1.0-6.0); RBC 4.29 10^6/uL (3.5-6.1); RED CELL DISTRIBUTION WIDTH 13.7 % (11.5-14.5); WHITE BLOOD COUNT 7.3 10^3/ul (4.5-11.0)
[2017-11-01 07:10] LABS: BLOOD UREA NITROGEN 17 mg/dL (7-21); CALCIUM 8.6 mg/dL (8.4-10.5); GFR AFRICAN-AMERICAN > 60; GFR NON-AFRICAN AMERICAN > 60
[2017-11-01 09:46] VITALS: TEMP 97.7; O2SAT 94
--- NOTE | 2017-11-01 10:42 | CP.PCM.DIS ---
<Laney Lozano - Last Filed: 11/01/17 13:16> Provider - Provider Date of Admission: 10/30/17 11:51 Attending physician: Mayuri Mckeon MD Consults: Neurosurgery Dr Ravi Neurology Dr. Werner ICU Dr. Maier Cardiology Dr. Muñoz Time Spent in preparation of Discharge (in minutes): 45 Hospital Course - Lab Results Lab Results: Micro Results 10/30/17 23:19 Naris MRSA Culture (Admit) - Final MRSA NOT DETECTED Most Recent Lab Values WBC 7.3 10^3/ul (4.5-11.0) 11/01/17 06:00 RBC 4.29 10^6/uL (3.5-6.1) 11/01/17 06:00 Hgb 12.4 g/dL (12.0-16.0) 11/01/17 06:00 Hct 37.5 % (36.0-48.0) 11/01/17 06:00 MCV 87.4 fl (80.0-105.0) 11/01/17 06:00 MCH 28.9 pg (25.0-35.0) 11/01/17 06:00 MCHC 33.1 g/dl (31.0-37.0) 11/01/17 06:00 RDW 13.7 % (11.5-14.5) 11/01/17 06:00 Plt Count 238 10^3/uL (120.0-450.0) 11/01/17 06:00 MPV 10.8 fl (7.0-11.0) 11/01/17 06:00 Gran % 54.3 % (50.0-68.0) 11/01/17 06:00 Lymph % (Auto) 36.0 % (22.0-35.0) H 11/01/17 06:00 [place] % (Auto) 7.6 % (1.0-6.0) H 11/01/17 06:00 Eos % (Auto) 2.0 % (1.5-5.0) 11/01/17 06:00 Baso % (Auto) 0.1 % (0.0-3.0) 11/01/17 06:00 Gran # 3.97 (1.4-6.5) 11/01/17 06:00 Lymph # (Auto) 2.6 (1.2-3.4) 11/01/17 06:00 [place] # (Auto) 0.6 (0.1-0.6) 11/01/17 06:00 Eos # (Auto) 0.2 (0.0-0.7) 11/01/17 06:00 Baso # (Auto) 0.01 K/mm3 (0.0-2.0) 11/01/17 06:00 Sodium 147 mmol/L (132-148) 11/01/17 06:00 Potassium 4.2 mmol/L (3.6-5.0) 11/01/17 06:00 Chloride 111 mmol/L (98-107) H 11/01/17 06:00 Carbon Dioxide 27 mmol/L (21-33) 11/01/17 06:00 Anion Gap 14 (10-20) 11/01/17 06:00 BUN 17 mg/dL (7-21) 11/01/17 06:00 Creatinine 0.8 mg/dl (0.7-1.2) 11/01/17 06:00 Est GFR ( Amer) > 60 11/01/17 06:00 Est GFR (Non-Af Amer) > 60 11/01/17 06:00 POC Glucose (mg/dL) 89 mg/dL (65-110) 11/01/17 06:48 Random Glucose 95 mg/dL (70-110) 11/01/17 06:00 Calcium 8.6 mg/dL (8.4-10.5) 11/01/17 06:00 Phosphorus 4.2 mg/dL (2.5-4.5) 10/31/17 05:30 Magnesium 1.6 mg/dL (1.7-2.2) L 10/31/17 05:30 Total Bilirubin 1.0 mg/dL (0.2-1.3) 10/30/17 10:00 AST 33 U/L (14-36) 10/30/17 10:00 ALT 39 U/L (7-56) 10/30/17 10:00 Alkaline Phosphatase 94 U/L (38-126) 10/30/17 10:00 Lactate Dehydrogenase 590 U/L (333-699) 10/30/17 10:00 Total Creatine Kinase 108 U/L (35-230) 10/30/17 10:00 Troponin I 0.09 ng/mL 10/31/17 00:30 NT-Pro-B Natriuret Pep 707 pg/mL (0-450) H 10/30/17 10:00 Total Protein 7.3 g/dL (5.8-8.3) 10/30/17 10:00 Albumin 4.3 g/dL (3.0-4.8) 10/30/17 10:00 Globulin 3.0 gm/dL 10/30/17 10:00 Albumin/Globulin Ratio 1.4 (1.1-1.8) 10/30/17 10:00 Triglycerides 127 mg/dL (35-160) 10/30/17 13:50 Cholesterol 174 mg/dL (130-200) 10/30/17 13:50 LDL Cholesterol Direct 92 mg/dL (0-129) 10/30/17 13:50 HDL Cholesterol 54 mg/dL (29-60) 10/30/17 13:50 TSH 3rd Generation 1.65 mIU/mL (0.46-4.68) 10/30/17 13:50 Urine Color Yellow (YELLOW) 10/30/17 10:19 Urine Appearance Clear (CLEAR) 10/30/17 10: Urine pH 6.0 (4.7-8.0) 10/30/17 10:19 Ur Specific Wesley <= 1.005 (1.005-1.035) 10/30/17 10:19 Urine Protein Negative mg/dL (<30 mg/dL) 10/30/17 10:19 Urine Glucose (UA) Negative mg/dL (NEGATIVE) 10/30/17 10:19 Urine Ketones Negative mg/dL (NEGATIVE) 10/30/17 10:19 Urine Blood Negative (NEGATIVE) 10/30/17 10: Urine Nitrate Negative (NEGATIVE) 10/30/17 10: Urine Bilirubin Negative (NEGATIVE) 10/30/17 10:19 Urine Urobilinogen 0.2 E.U./dL (<1 E.U./dL) 10/30/17 10:19 Ur Leukocyte Esterase Trace Nila/uL (NEGATIVE) H 10/30/17 10:19 Urine RBC 0 - 2 /hpf (0-2) 10/30/17 10:19 Urine WBC 5 - 10 /hpf (0-6) 10/30/17 10:19 Ur Epithelial Cells 3 - 4 /hpf (0-5) 10/30/17 10:19 Urine Bacteria Few (NEG) 10/30/17 10:19 Urine Opiates Screen Negative (NEGATIVE) 10/30/17 10:19 Urine Methadone Screen Negative (NEGATIVE) 10/30/17 10:19 Ur Barbiturates Screen Negative (NEGATIVE) 10/30/17 10:19 Ur Phencyclidine Scrn Negative (NEGATIVE) 10/30/17 10:19 Ur Amphetamines Screen Negative (NEGATIVE) 10/30/17 10:19 U Benzodiazepines Scrn Negative (NEGATIVE) 10/30/17 10:19 U Oth Cocaine Metabols Negative (NEGATIVE) 10/30/17 10:19 U Cannabinoids Screen Negative (NEGATIVE) 10/30/17 10:19 Alcohol, Quantitative < 10 mg/dL (0-10) 10/30/17 13:50 Blood Type O POSITIVE 10/30/17 11:20 Blood Type Confirm O POSITIVE 10/30/17 12:15 Antibody Screen Negative 10/30/17 11:20 BBK History Checked No verified bt 10/30/17 11:20 - Hospital Course Hospital Course: 67 F with a PMHx of HTN, HLD, SVT, breast cancer x2 ( s/p surgery, chemo and radiation), anxiety disorder, vertigo, and TIAs presented to [facility] ED [place]. Patient states she doesn't remember the event, only remembers waking up in the hospital. As per patient's , she was [place] on the [place] when her shoe was caught on something causing her to trip and fall, hitting the back of her head. As per patient's , she was verbal and responsive afterwards, without any rhythmic motions urinary incontinence or tongue biting. Syncope was likely multifactorial in nature ( alcohol- was drinking on cruise ship, versus arrhythmia versus dehydration versus uti). Troponin indeterminate, no events on tele, ekg normal. Noted episode of SVT. Cardiology Dr Muñoz recommended outpatient Stress Test. Carotid echo with Bilateral 20-39% proximal ICA stenoses. Antegrade flow in both vertebral arteries. C spine and hip/pelvic x-ray with no fractures. UTI treated with Rocephin. Initial CT on arrival with small mount of post traumatic subarachnoid hemorrhage on anterior surface of left frontal lobe, repeat CT 6 hours later with diminishing trace, Another repat CT this morning with resolution of the hemorrhage. Neurosurgery, Dr Sahni indicated no acute interventions at this time. Neurology. Neurology Dr Werner agreed with medical regimen.Patient was walked around unit with a steady gait. Upon DC, patient is to follow up with patients own PMD in [place], along with her usual Neurologist Dr. Burger, and her commercial counsel Dr. Torres. Discharge Exam - Head Exam Head Exam: ATRAUMATIC, NORMAL INSPECTION, NORMOCEPHALIC - Eye Exam Eye Exam: EOMI, Normal appearance, PERRL Pupil Exam: NORMAL ACCOMODATION, PERRL - ENT Exam ENT Exam: Mucous Membranes Moist - Respiratory Exam Respiratory Exam: Clear to PA & Lateral, NORMAL BREATHING PATTERN, UNREMARKABLE - Cardiovascular Exam Cardiovascular Exam: REGULAR RHYTHM, +S1, +S2 - GI/Abdominal Exam GI & Abdominal Exam: Normal Bowel Sounds, Soft. absent: Tenderness - Neurological Exam Neurological exam: Alert, CN II-XII Intact, Oriented x3, Reflexes Normal - Psychiatric Exam Psychiatric exam: Normal Affect, Normal Mood - Skin Skin Exam: Dry, Intact, Normal Color, Warm Discharge Plan - Follow Up Plan Condition: STABLE Disposition: HOME/ ROUTINE Instructions: Vertigo (a Type of Dizziness), Syncope (Fainting), Subarachnoid Hemorrhage Additional Instructions: Follow up with primary care physician one week Follow up with Neurology within 1 week Follow up with Cardiology for outpatient stress test within 1 week <Carmen Govea - Last Filed: 11/01/17 14:36> Provider - Provider Date of Admission: 10/30/17 11:51 Attending physician: Mayuri Mckeon MD Hospital Course - Lab Results Lab Results: Micro Results 10/30/17 23:19 Naris MRSA Culture (Admit) - Final MRSA NOT DETECTED Most Recent Lab Values WBC 7.3 10^3/ul (4.5-11.0) 11/01/17 06:00 RBC 4.29 10^6/uL (3.5-6.1) 11/01/17 06:00 Hgb 12.4 g/dL (12.0-16.0) 11/01/17 06:00 Hct 37.5 % (36.0-48.0) 11/01/17 06:00 MCV 87.4 fl (80.0-105.0) 11/01/17 06:00 MCH 28.9 pg (25.0-35.0) 11/01/17 06:00 MCHC 33.1 g/dl (31.0-37.0) 11/01/17 06:00 RDW 13.7 % (11.5-14.5) 11/01/17 06:00 Plt Count 238 10^3/uL (120.0-450.0) 11/01/17 06:00 MPV 10.8 fl (7.0-11.0) 11/01/17 06:00 Gran % 54.3 % (50.0-68.0) 11/01/17 06:00 Lymph % (Auto) 36.0 % (22.0-35.0) H 11/01/17 06:00 [place] % (Auto) 7.6 % (1.0-6.0) H 11/01/17 06:00 Eos % (Auto) 2.0 % (1.5-5.0) 11/01/17 06:00 Baso % (Auto) 0.1 % (0.0-3.0) 11/01/17 06:00 Gran # 3.97 (1.4-6.5) 11/01/17 06:00 Lymph # (Auto) 2.6 (1.2-3.4) 11/01/17 06:00 [place] # (Auto) 0.6 (0.1-0.6) 11/01/17 06:00 Eos # (Auto) 0.2 (0.0-0.7) 11/01/17 06:00 Baso # (Auto) 0.01 K/mm3 (0.0-2.0) 11/01/17 06:00 Sodium 147 mmol/L (132-148) 11/01/17 06:00 Potassium 4.2 mmol/L (3.6-5.0) 11/01/17 06:00 Chloride 111 mmol/L (98-107) H 11/01/17 06:00 Carbon Dioxide 27 mmol/L (21-33) 11/01/17 06:00 Anion Gap 14 (10-20) 11/01/17 06:00 BUN 17 mg/dL (7-21) 11/01/17 06:00 Creatinine 0.8 mg/dl (0.7-1.2) 11/01/17 06:00 Est GFR ( Amer) > 60 11/01/17 06:00 Est GFR (Non-Af Amer) > 60 11/01/17 06:00 POC Glucose (mg/dL) 65 mg/dL (65-110) 11/01/17 11:07 Random Glucose 95 mg/dL (70-110) 11/01/17 06:00 Calcium 8.6 mg/dL (8.4-10.5) 11/01/17 06:00 Phosphorus 4.2 mg/dL (2.5-4.5) 10/31/17 05:30 Magnesium 1.6 mg/dL (1.7-2.2) L 10/31/17 05:30 Total Bilirubin 1.0 mg/dL (0.2-1.3) 10/30/17 10:00 AST 33 U/L (14-36) 10/30/17 10:00 ALT 39 U/L (7-56) 10/30/17 10:00 Alkaline Phosphatase 94 U/L (38-126) 10/30/17 10:00 Lactate Dehydrogenase 590 U/L (333-699) 10/30/17 10:00 Total Creatine Kinase 108 U/L (35-230) 10/30/17 10:00 Troponin I 0.09 ng/mL 10/31/17 00:30 NT-Pro-B Natriuret Pep 707 pg/mL (0-450) H 10/30/17 10:00 Total Protein 7.3 g/dL (5.8-8.3) 10/30/17 10:00 Albumin 4.3 g/dL (3.0-4.8) 10/30/17 10:00 Globulin 3.0 gm/dL 10/30/17 10:00 Albumin/Globulin Ratio 1.4 (1.1-1.8) 10/30/17 10:00 Triglycerides 127 mg/dL (35-160) 10/30/17 13:50 Cholesterol 174 mg/dL (130-200) 10/30/17 13:50 LDL Cholesterol Direct 92 mg/dL (0-129) 10/30/17 13:50 HDL Cholesterol 54 mg/dL (29-60) 10/30/17 13:50 TSH 3rd Generation 1.65 mIU/mL (0.46-4.68) 10/30/17 13:50 Urine Color Yellow (YELLOW) 10/30/17 10:19 Urine Appearance Clear (CLEAR) 10/30/17 10:19 Urine pH 6.0 (4.7-8.0) 10/30/17 10:19 Ur Specific [place] <= 1.005 (1.005-1.035) 10/30/17 10:19 Urine Protein Negative mg/dL (<30 mg/dL) 10/30/17 10:19 Urine Glucose (UA) Negative mg/dL (NEGATIVE) 10/30/17 10: Urine Ketones Negative mg/dL (NEGATIVE) 10/30/17 10:19 Urine Blood Negative (NEGATIVE) 10/30/17 10:19 Urine Nitrate Negative (NEGATIVE) 10/30/17 10:19 Urine Bilirubin Negative (NEGATIVE) 10/30/17 10:19 Urine Urobilinogen 0.2 E.U./dL (<1 E.U./dL) 10/30/17 10:19 Ur Leukocyte Esterase Trace Nila/uL (NEGATIVE) H 10/30/17 10:19 Urine RBC 0 - 2 /hpf (0-2) 10/30/17 10:19 Urine WBC 5 - 10 /hpf (0-6) 10/30/17 10:19 Ur Epithelial Cells 3 - 4 /hpf (0-5) 10/30/17 10:19 Urine Bacteria Few (NEG) 10/30/17 10:19 Urine Opiates Screen Negative (NEGATIVE) 10/30/17 10:19 Urine Methadone Screen Negative (NEGATIVE) 10/30/17 10:19 Ur Barbiturates Screen Negative (NEGATIVE) 10/30/17 10:19 Ur Phencyclidine Scrn Negative (NEGATIVE) 10/30/17 10:19 Ur Amphetamines Screen Negative (NEGATIVE) 10/30/17 10:19 U Benzodiazepines Scrn Negative (NEGATIVE) 10/30/17 10:19 U Oth Cocaine Metabols Negative (NEGATIVE) 10/30/17 10:19 U Cannabinoids Screen Negative (NEGATIVE) 10/30/17 10:19 Alcohol, Quantitative < 10 mg/dL (0-10) 10/30/17 13:50 Blood Type O POSITIVE 10/30/17 11:20 Blood Type Confirm O POSITIVE 10/30/17 12:15 Antibody Screen Negative 10/30/17 11:20 BBK History Checked No verified bt 10/30/17 11:20 Attending/Attestation - Attestation I have personally seen and examined this patient.: Yes I have fully participated in the care of the patient.: Yes I have reviewed all pertinent clinical information, including history, physical exam and plan: Yes Notes (Text): I have seen and examined the patient at bedside. Agree with the above note with the following additions/ exceptions: Briefly this is s67 year old female with history of vertigo, HTN, HLD, SVT with ablation, breast cancer x2 ( s/p surgery , chemo and radiation), anxiety disorder, h/o TIAs brought in post fall in cruise ship. CT head showed small subarachnoid hemorrhage. Repeat CT showed resolution of hemorrhage. Neurosurgery and Neurology evaluation appreciated. Patient is medically stable. She did not have arrhythmia. Cardiology evaluation appreciated. Patient had borderline troponins. Cardiology recommended outpatient stress test. Echo normal. Carotid doppler did not show any significant stenosis. Continue metoprolol and lisinopril. PT cleared the patient to go home. Upon discharge patient will follow-up with PMD in [facility]. Luz
--- NOTE | 2017-11-01 13:32 | PN ---
DATE: 11/01/[address] Scott Muñoz. SUBJECTIVE: The patient denies any headache or blurry vision and denies dizziness while lying in bed. PHYSICAL EXAMINATION: VITAL SIGNS: Blood pressure 160/77, heart rate 73, temperature 97.7, respirations 20. HEENT: No pallor or icterus. CHEST: Clear. HEART: S1 and S2 regular. EXTREMITIES: No edema. LABORATORY DATA: The SMA-7 is within normal limits except for chloride of 111. Today's hemoglobin, hematocrit, white count and platelet count are within normal limit. Head CT scan done yesterday revealed normal head CT scan with resolution of subarachnoid hemorrhage. ASSESSMENT: 1. Syncopal episode. 2. Trace left subarachnoid hematoma reported on initial CAT scan on 10/30/2017. 3. History of supraventricular tachycardia, status post ablation. 4. Hypertension. 5. Indeterminate troponin elevation. RECOMMENDATIONS: Continue current Zestril at 40 mg once a day, Protonix at 40 mg p.o. once a day. Resume Lopressor and Lipitor. The patient has already had outpatient cardiology appointment this coming Friday with Dr. Morgan. Roger Gonzalez MD
== END 2017-11-01 14:17 | disposition home or self-care (01) | DRG 83 ==
LOC: ED 09:23 → ERH 11:51 → CCU 13:30 → 5RNO 10-31 10:29
PROVIDERS: ADMIT Internal Medicine; ATTEND Internal Medicine
DX: S06.6X9A Traumatic subarachnoid hemorrhage with loss of consciousness of unspecified duration, initial encounter (principal); N39.0 Urinary tract infection, site not specified; E87.0 Hyperosmolality and hypernatremia; I10 Essential (primary) hypertension; E87.5 Hyperkalemia; R73.03 Prediabetes; E78.00 Pure hypercholesterolemia, unspecified; F41.9 Anxiety disorder, unspecified; E83.42 Hypomagnesemia; Y93.01 Activity, walking, marching and hiking; W10.8XXA Fall (on) (from) other stairs and steps, initial encounter; Z85.3 Personal history of malignant neoplasm of breast; Y92.89 Other specified places as the place of occurrence of the external cause; Z86.73 Personal history of transient ischemic attack (TIA), and cerebral infarction without residual deficits; Z92.21 Personal history of antineoplastic chemotherapy; Z92.3 Personal history of irradiation; Z90.13 Acquired absence of bilateral breasts and nipples; Z87.891 Personal history of nicotine dependence